=== PATIENT | female | born 1950 | race Caucasian/White ===

== ENCOUNTER → 2017-11-24 09:18 | Outpatient (CLI) | payer MEDICARE, OTHER, SELFPAY ==
[2017-11-24 09:49] LABS: Absolute Lymphocyte Count 2.37 X10^3/ul (0.83-4.51); Absolute Neutrophil Count 4.2 X10^3/uL (2.0-7.7); Basophil# 0.01 X10^3/uL; Basophil% 0.1 % (0-1); Eosinophil# 0.12 X10^3/uL; Eosinophils% 1.7 % (0-5); Hematocrit 42.7 % (37-47); Lymphocyte # 2.37 X10^3/ul (4.0); Lymphocyte % 33.4 % (19-41); Mean Corp Hgb Conc 32.8 g/gl (32-36); Mean Corpuscular Hgb 28.5 pg (27.0-32.0); Mean Platelet Vol. 10.8 fl (6.2-12.0); Monocyte# 0.41 X10^3/uL; Monocyte% 5.8 % (0-10); Neutrophil # 4.15 X10^3/uL (2.7-7.7); Neutrophil % 58.4 % (47-70); Platelet Count 253 K/mm3 (150-450); RBC Distribution Width CV 13.2 % (11.6-14.6); RBC Distribution Width SD 40.9 fl (35.1-43.9); Red Blood Count 4.91 M/mm3 (4.2-5.4); White Blood Count 7.1 K/mm3 (4.4-11.0)
[2017-11-24 09:50] LABS: POSITIVE COUNT NO; POSITIVE DIFFERENTIAL NO; POSITIVE MORPHOLOGY NO
[2017-11-24 10:02] LABS: Hemoglobin A1c 7.5 % (4.2-6.3)
[2017-11-24 10:16] LABS: T3 Total - Triiodothyronine 1.01 ng/mL (0.6-1.81); Vitamin D,25 Hydroxy 27.6 ng/mL (29.95-100.01)
[2017-11-24 10:19] LABS: AST(SGOT) 13 U/L (15-37); Alanine Aminotransfer ALT/SGPT 19 U/L (13-56); Albumin, Serum 3.7 g/dL (3.2-5.0); Alkaline Phosphatase 82 U/L (45-117); Anion Gap 8 (5-15); BUN 12 mg/dL (7-18); BUN/Creat Ratio 13.5 RATIO (10-20); Calcium,Total 8.9 mg/dL (8.5-10.1); Chloride 102 mmol/L (98-107); Cholesterol 174 mg/dL (200); Creatinine, Serum 0.89 mg/dL (0.55-1.02); EST Glomerular Filtration Rate 67 mL/min (>60); Est Glom Filt Rate - Afr Amer 81 mL/min (>60); Globulin 3.6 g/dL (2.2-4.2); Glucose 180 mg/dL (74-106); High Density Lipoprotein 73 mg/dL; Potassium 3.9 mmol/L (3.5-5.1); Protein, Total 7.3 g/dL (6.4-8.2); Sodium Level 137 mmol/L (136-145); T4 Free Direct 1.65 ng/dL (0.76-1.46); Thyroid Stim Hormone (TSH) 0.57 uIU/mL (0.358-3.74); Triglycerides 93 mg/dL; Very Low Density Lipoprotein 19 mg/dL (5-40)
== END ==
PROVIDERS: Family Provider Family Medicine; PCP Family Medicine; Referring Provider Family Medicine; Visit Provider Family Medicine
DX: E11.9 Type 2 diabetes mellitus without complications (principal); I10 Essential (primary) hypertension; E78.5 Hyperlipidemia, unspecified; E03.9 Hypothyroidism, unspecified; E55.9 Vitamin D deficiency, unspecified
CPT/HCPCS: 36415; 80053; 80061; 82306; 83036; 84439; 84443; 84480; 85025

== ENCOUNTER → 2018-07-25 | Outpatient (CLI) | payer MEDICARE, OTHER, SELFPAY ==
[2018-07-25 17:26] LABS: Absolute Lymphocyte Count 2.37 X10^3/ul (0.83-4.51); Absolute Neutrophil Count 5.8 X10^3/uL (2.0-7.7); Basophil# 0.02 X10^3/uL; Basophil% 0.2 % (0-1); Eosinophil# 0.11 X10^3/uL; Eosinophils% 1.2 % (0-5); Hemoglobin 14.5 g/dl (12.0-15.0); Lymphocyte # 2.37 X10^3/ul (4.0); Lymphocyte % 26.7 % (19-41); Mean Corp Hgb Conc 32.2 g/gl (32-36); Mean Corpuscular Hgb 27.8 pg (27.0-32.0); Mean Corpuscular Volume 86.2 fL (81-99); Mean Platelet Vol. 11.3 fl (6.2-12.0); Monocyte# 0.61 X10^3/uL; Monocyte% 6.9 % (0-10); Neutrophil # 5.77 X10^3/uL (2.7-7.7); Neutrophil % 64.9 % (47-70); Platelet Count 273 K/mm3 (150-450); RBC Distribution Width CV 14.1 % (11.6-14.6); RBC Distribution Width SD 44.4 fl (35.1-43.9); Red Blood Count 5.22 M/mm3 (4.2-5.4); White Blood Count 8.9 K/mm3 (4.4-11.0)
[2018-07-25 17:35] LABS: POSITIVE COUNT NO; POSITIVE DIFFERENTIAL NO; POSITIVE MORPHOLOGY NO
[2018-07-25 18:16] LABS: AST(SGOT) 15 U/L (15-37); Alanine Aminotransfer ALT/SGPT 25 U/L (13-56); Albumin, Serum 3.8 g/dL (3.2-5.0); Alkaline Phosphatase 84 U/L (45-117); Anion Gap 10 (5-15); BUN 10 mg/dL (7-18); BUN/Creat Ratio 14.2 RATIO (10-20); Calcium,Total 9.4 mg/dL (8.5-10.1); Chloride 105 mmol/L (98-107); EST Glomerular Filtration Rate 87 mL/min (>60); Est Glom Filt Rate - Afr Amer 106 mL/min (>60); Free T3 2.1 pg/mL (2.18-3.98); Globulin 3.9 g/dL (2.2-4.2); Glucose 122 mg/dL (74-106); Potassium 4.6 mmol/L (3.5-5.1); Protein, Total 7.7 g/dL (6.4-8.2); Sodium Level 141 mmol/L (136-145); T4 Free Direct 1.45 ng/dL (0.76-1.46)
== END | disposition home or self-care (01) ==
LOC: BFHLAB 15:41
PROVIDERS: Family Provider Family Medicine; PCP Family Medicine; Visit Provider Family Medicine
DX: R19.7 Diarrhea, unspecified (principal); E03.9 Hypothyroidism, unspecified
CPT/HCPCS: 36415; 80053; 84439; 84443; 84481; 85025

== ENCOUNTER 2018-08-26 05:19 | Day surgery (SDC) | payer MEDICARE, OTHER, SELFPAY ==
[2018-08-23 14:22] VITALS: BMI 33.5
[2018-08-26] VITALS (10 sets, daily range): BP systolic 93–147; BP diastolic 50–117; PULSE 75–95; RESP 14–16; TEMP 36.2–36.9; O2SAT 92–100; BMI 34.5
--- NOTE | 2018-08-26 05:46 | HP.PCM_ITS ---
Problem List (1) Screening for intestinal cancer Status: Acute History and Physical Date of Admission: 08/26/18 MR#:[id number]:[id number] Name: YANNA CASIANO Rep #: [id number] : 1950 Provider: Jose carrasquillo MD Age/Sex: 67/F Location: [facility] Status: Signed Intake Vital Signs 08/23/18 Height 5 ft 9 in 08/23/18 Weight: 227 lb 6 oz 08/23/18 Body Mass Index (BMI) 33.5 08/23/18 Blood Pressure 117/79 08/23/18 Blood Pressure Location Rt brachial 08/23/18 Respiratory Rate 20 H 08/23/18 Pulse Rate 99 08/23/18 Pulse Ox 96 Intake Visit Reasons: C-Scope Consult Chief Complaint: changes in bowel movements 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 Is patient in pain?: No Allergies Penicillins Allergy (Severe, Verified 08/23/18 14:23) throat swelling acetaminophen [From Vicodin] Adverse Reaction (Mild, Verified 08/23/18 14:23) mental status change hydrocodone [From Vicodin] Adverse Reaction (Mild, Verified 08/23/18 14:23) mental status change Medications calcium acetate 667 mg capsule 667 mg PO TID 08/23/18 [History Confirmed 08/23/18] cholecalciferol (vitamin D3) 2,000 unit capsule 2,000 unit PO DAILY 08/23/18 [History Confirmed 08/23/18] latanoprost 0.005 % eye drops, emulsion 1 drp OPHTHALMIC QPM 08/23/18 [History Confirmed 08/23/18] levothyroxine 125 mcg capsule 125 mcg PO DAILY 08/23/18 [History] lisinopril 10 mg tablet 10 mg PO DAILY 08/23/18 [History Confirmed 08/23/18] simvastatin 20 mg tablet 20 mg PO QHS 08/23/18 [History Confirmed 08/23/18] Is last menstrual period known: No Post menopausal: Yes Patient : No PFSH Medical History (Updated 08/23/18 @ 14:23 by Jose Drake MD) Screening for intestinal cancer (Acute) Carpal tunnel syndrome (Acute) Diabetes (Acute) History of hysterectomy (Acute) Hypothyroidism (Acute) HTN (hypertension) (Chronic) Surgical History (Updated 08/23/18 @ 14:21 by Verona Shaffer) History of cholecystectomy (Acute) History of colonoscopy (Acute ~2003) History of tonsillectomy (Acute) Family History (Updated 08/23/18 @ 14:22 by Verona Shaffer) Mother Alzheimer disease CVA (cerebral vascular accident) HPI HPI HPI: YANNA CASIANO, is a 67 F who presents to the office today for HPI HPI Surgical H&P: Yes HPI: YANNA CASIANO, is a 67 F who presents to the office today for surgical consultation regarding the need for screening colonoscopy and the potential for a slight change of bowel habit. The patient is a diet-controlled diabetic. She has had an approximately 15 pound intentional weight loss. She started exercising and trying to better control her diabetes. She has no personal history of colon polyps and there is no family history of colon cancer. October 15, 2003 Dr. Prieto Mercer performed a colonoscopy. Few scattered diverticula was seen. The ileocecal valve is slightly prominent. Some hemorrhoids were noted. No other acute findings. She has not noticed any bright red blood per rectum or melena. Stool caliber however is decreased. She will intermittently have some diarrhea that clears her system. She denies any abdominal pain. She otherwise feels well. Patient is referred by her primary care physician Dr. Vanessa Craig for surgical consultation regarding screening colonoscopy change of bowel habits with possible decreased caliber stool and intermittent diarrhea. A written compromise surgical consult recommendations will return to Dr. Craig. ROS General General: Yes weight change; no appetite, fatigue, colon cancer, breast cancer or weakness HEENT HEENT: No difficulty swallowing, eye injury, eye surgery, swollen glands or hoarseness Endo Endocrine: Yes thyroid disease and diabetes mellitus; no thyroid cancer, Hair loss, heat intolerance or cold intolerance Cardio Cardiovascular: Yes high blood pressure; no murmur, pacemaker, heart disease, atrial fibrillation, heart attack, heart stent, palpitations, shortness of breat with exertion or chest pain Psych Psychiatric: No depression, anxiety or hearing voices Resp Respiratory: No shortness of breath, No sleep apnea, No cough, No COPD, No asthma, No emphysema, No wheezing Gastro Gastrointestinal: No abdominal pain, No nausea or vomiting, No diarrhea, No constipation, No blood in stool, No acid reflux, No hemorrhoids, No ulcers, No gallbladder problem, No black,tarry stools [place] Hematologic: No blood thinners, No blood disorders, No bleeding, No anemia, No blood clots Neuro Neurologic: No weakness Exam Const General: cooperative, comfortable, no acute distress Nutritional Appearance: obese Orientation: alert, awake HENMT Head: normal to inspection Chest Chest palpation & inspection: normal inspection of the chest Resp Effort & Inspection: normal respiratory effort Auscultation: clear to auscultation bilaterally Cardio Rate: regular rate Rhythm: regular rhythm Heart Sounds: no murmurs GI Palpation: soft, no hepatosplenomegaly Auscultation: normal bowel sounds Musc Cervical Spine: normal cervical lordosis Neuro Cognition: normal cognition Extrem General: no calf tenderness bilaterally Psych Affect: normal affect Assessment & Plan Problems 1. Screening for intestinal cancer Z12.10 Plan 67-year-old female is clearly due for screening colonoscopy. Difficult to determine whether stool caliber change or intermittent diarrhea is of clinical significance. I am recommending to her a colonoscopy with possible biopsy or polypectomy as indicated. She is aware of the technique, benefit, risks, alternatives. She has had an opportunity to ask and have questions answered. We will schedule proceed at her discretion. We should be open to proceed under IV sedation. I very much appreciate the kind opportunity of assisting with her surgical care. She reminds me that I have previously assisted her with a breast biopsy. CC: Dr. Vanessa Drake M.D., F.A.C.S. Coding Level of Care Code 14248 Diagnoses Screening for intestinal cancer Z12.08/23/18 1426 <Electronically signed by Jose berman MD> Date _ Jose Drake MD Cosigner Signature: Date (if applicable) CC: Vanessa Craig DO ~ I have re-examined the patient. There are no clinical changes since date of exam.
--- NOTE | 2018-08-26 06:30 | COLBX_PTH ---
PATIENT: YANNA CASIANO LOC: EN U#:[id number] AGE/SX: 67/F ROOM: RE08/26/[address]: Dr. Jose Drake MD : 1950 BED: DIS: 08/26/2018 SPEC #: [id number] RECD: 08/26/18 10:56 STATUS: REJI DELGADO #: [id number] MUNIRA: 08/26/18 06:[address]: Jose Drake DEPT: SURGICAL PATHOLOGY RECD BY: Aidan Frazier ENTERED: 08/26/18 15:04 SP TYPE: COLON BX OTHR DR: Dr. Vanessa Craig DO Tissues: Left colon Procedures: Surgery Specimen Level IV HEADER OPERATION: Colonoscopy (MOD) PRE-OP DIAGNOSIS: Screening TISSUE SUBMITTED: Random left colonic biopsy MICROSCOPIC DIAGNOSIS Left colon, random biopsy: No pathologic diagnosis. AM:gen 08/29/18 COMMENT Focal mucosal hemorrhage is seen. The significance of this is unclear. Clinical correlation is suggested. MICROSCOPIC DESCRIPTION Slides are reviewed. GROSS DESCRIPTION Received in fixative is one container labeled with the patient's name and designated random left colon biopsy. The specimen consists of multiple irregular fragments of light sterling soft tissue that in aggregate measure 1 x 0.5 x 0.1 cm. The specimen is totally submitted in one cassette. / AM:gen 08/26/18 TC:5 CPT: 94243
--- NOTE | 2018-08-26 07:01 | OP.ENDO_ITS ---
08/26/2018 Vanessa Craig [address] [facility] [place] [address] [place] [address] Re : Colonoscopy procedure for Dora Guzmán Dear Dr. Craig This procedure was performed on Sunday, August 26, 2018. My impressions and recommendations are as follows: Impressions : - Mild anal stricture, non-thrombosed external hemorrhoids, non-thrombosed internal hemorrhoids and internal hemorrhoids that prolapse with straining, but spontaneously regress to the resting position (Grade II) found on digital rectal exam. - Diverticulosis in the sigmoid colon. Biopsied. - The examination was otherwise normal. Recommendations : - Discharge patient to home. - Resume previous diet. - Continue present medications. - Repeat colonoscopy in 10 years for screening purposes. - Telephone my office for pathology results in 1 week. Suspect diverticular disease as source of occasional bowel habit differences My findings are described in the full procedure note, which is enclosed. If I can be of further assistance, please feel free to contact me at Doctor phone number(s): Work: . Sincerely, Jose Drake MD 08/26/2018 7:00:50 AM This report has been signed electronically.
== END 2018-08-26 07:59 | disposition home or self-care (01) ==
LOC: EN 05:20 → AC 05:22
PROVIDERS: Family Provider Family Medicine; PCP Family Medicine; Referring Provider Family Medicine; Visit Provider Surgery
PROC: 0DJD8ZZ Inspection of Lower Intestinal Tract, Via Natural or Artificial Opening Endoscopic (ICD-10-PCS; CPT 45378; principal; 2018-08-26 06:25)
DX: Z12.11 Encounter for screening for malignant neoplasm of colon (principal); K62.4 Stenosis of anus and rectum; K64.1 Second degree hemorrhoids; K64.4 Residual hemorrhoidal skin tags; K57.30 Diverticulosis of large intestine without perforation or abscess without bleeding; E11.9 Type 2 diabetes mellitus without complications; E03.9 Hypothyroidism, unspecified; I10 Essential (primary) hypertension; Z78.0 Asymptomatic menopausal state; Z90.49 Acquired absence of other specified parts of digestive tract; Z79.899 Other long term (current) drug therapy
CPT/HCPCS: 45380; 88305; 99152; 99153; J7120

== ENCOUNTER → 2019-08-22 07:09 | Outpatient (CLI) | payer MEDICARE, OTHER, SELFPAY ==
[2018-08-26 05:39] VITALS: BMI 34.5
--- NOTE | 2019-08-22 07:14 | CT_ITS ---
STUDY: CT BRAIN WITH AND WITHOUT CONTRAST REASON FOR EXAM: Female, 68 years old. SECTOR ARCUATE DEFECTS BILAT RADIATION DOSAGE (If Supplied By Facility): CTDIvol = ( 44.99 ) mGy, DLP = ( 1580.97 ) mGycm TECHNIQUE: Transaxial CT imaging of the brain was performed pre and post contrast administration. The examination was performed with intravenous administration of IV 100mL Isovue-300. Individualized dose optimization techniques were used for this CT. COMPARISON: None. FINDINGS: Normal soft tissue structures. Normal calvarium. Normal size ventricles and extra-axial spaces for the patient''s age. Normal white matter tracts of the cerebral hemispheres. Normal basal ganglia and thalami. Normal brainstem. Normal cerebellum. There is prominence of the cisterna magna. This is a normal variant. There is no intracranial hemorrhage. There are no findings of an acute ischemic infarction. Normal visualized paranasal sinuses. CT/Brain/Head W/WO Contrast IMPRESSION: Normal unenhanced and enhanced CT scan of the brain. Electronically Signed: Kapil Dickens, at 10:48 EDT , Service support ,
[2019-08-22 07:31] LABS: CREATININE FINGERSTICK 0.7 mg/dL (0.55-1.02)
== END ==
PROVIDERS: PCP Family Medicine; Referring Provider Ophthalmology; Visit Provider Ophthalmology
DX: H53.433 Sector or arcuate defects, bilateral (principal)
CPT/HCPCS: 70470; Q9967

== ENCOUNTER → 2019-08-24 10:19 | Outpatient (CLI) | payer MEDICARE, OTHER, SELFPAY ==
[2018-08-26 05:39] VITALS: BMI 34.5
[2019-08-24 12:39] LABS: Absolute Lymphocyte Count 1.67 X10^3/uL (0.83-4.51); Absolute Neutrophil Count 6.2 X10^3/uL (2.0-7.7); Basophil# 0.03 X10^3/uL; Basophil% 0.4 % (0-1); Eosinophil# 0.04 X10^3/uL; Eosinophils% 0.5 % (0-5); Hematocrit 44.6 % (37-47); Hemoglobin 14.4 g/dL (12.0-15.0); Lymphocyte # 1.67 X10^3/ul (4.0); Lymphocyte % 19.5 % (19-41); Mean Corp Hgb Conc 32.3 g/dL (32-36); Mean Corpuscular Hgb 28.3 pg (27.0-32.0); Mean Corpuscular Volume 87.8 fL (81-99); Mean Platelet Vol. 11.3 fl (6.2-12.0); Monocyte# 0.64 X10^3/uL; Monocyte% 7.5 % (0-10); NRBC Flagged by Analyzer 0 % (0-5); Neutrophil # 6.16 X10^3/uL (2.7-7.7); Neutrophil % 71.7 % (47-70); Platelet Count 304 K/mm3 (150-450); RBC Distribution Width CV 12.9 % (11.6-14.6); RBC Distribution Width SD 41.7 fl (35.1-43.9); Red Blood Count 5.08 M/mm3 (4.2-5.4); White Blood Count 8.6 K/mm3 (4.4-11.0)
[2019-08-24 13:46] LABS: ALB/GLOB Ratio 1.1 RATIO (0.9-2.4); AST(SGOT) 16 U/L (15-37); Alanine Aminotransfer ALT/SGPT 25 U/L (13-56); Albumin, Serum 4.1 g/dL (3.2-5.0); Alkaline Phosphatase 88 U/L (45-117); Anion Gap 8 (5-15); BUN 14 mg/dL (7-18); BUN/Creat Ratio 16.2 RATIO (10-20); Calcium,Total 9.5 mg/dL (8.5-10.1); Chloride 103 mmol/L (98-107); Cholesterol 194 mg/dL (200); Creatinine, Serum 0.86 mg/dL (0.55-1.02); EST Glomerular Filtration Rate 69 mL/min (>60); Est Glom Filt Rate - Afr Amer 84 mL/min (>60); Free T3 2.4 pg/mL (2.18-3.98); Globulin 3.7 g/dL (2.2-4.2); Glucose 173 mg/dL (74-106); High Density Lipoprotein 77 mg/dL; Potassium 4.3 mmol/L (3.5-5.1); Protein, Total 7.8 g/dL (6.4-8.2); Sodium Level 138 mmol/L (136-145); T4 Free Direct 1.54 ng/dL (0.76-1.46); Thyroid Stim Hormone (TSH) 1.03 uIU/mL (0.358-3.74); Triglycerides 78 mg/dL; Very Low Density Lipoprotein 16 mg/dL (5-40)
== END ==
PROVIDERS: PCP Family Medicine; Visit Provider Family Medicine
DX: E11.9 Type 2 diabetes mellitus without complications (principal); E03.9 Hypothyroidism, unspecified; E78.5 Hyperlipidemia, unspecified; I10 Essential (primary) hypertension; Z51.81 Encounter for therapeutic drug level monitoring
CPT/HCPCS: 36415; 80053; 80061; 84439; 84443; 84481; 85025

== ENCOUNTER → 2019-09-13 12:16 | Outpatient (CLI) | payer MEDICARE, OTHER, SELFPAY ==
[2018-08-26 05:39] VITALS: BMI 34.5
--- NOTE | 2019-09-13 12:18 | BI_ITS ---
MAMMOGRAPHY - BILATERAL SCREENING 3-D TOMOSYNTHESIS REASON FOR EXAM: Female, 68 years old. Routine screening PERTINENT HISTORY: BILAT SCREENING - FAM HX OF PATERNAL GRANDMOTHER @ AGE 68 - RT STEREO BX 2005 - RT U/S DONE 2017 = LIPOMA. TECHNIQUE: 2-D mammograms and 3-D Tomosynthesis of the breast (s) were performed. CAD was performed. COMPARISON: 06/26/2016 FINDINGS: The breast composition is composed of scattered fibroglandular density. Scattered benign calcifications are seen. No dense spiculated masses or suspicious microcalcifications are identified. No architectural distortion is identified. There is no skin thickening or retraction. There has been no significant change since the prior study. BI/SCREEN MAMM (CAD) W/VIANCA BILAT IMPRESSION: No mammographic signs of malignancy. Routine yearly mammograms recommended. ASSESSMENT CATEGORY: BIRADS Category 1: Negative. A letter regarding these results will be sent to the patient by the facility within 30 days. FOLLOW UP RECOMMENDATION: Yearly follow up mammogram recommended. (A) Approximately 10% of breast cancers are not detected by mammography. A normal mammogram should not delay biopsy of a clinically suspicious abnormality. Electronically Signed: Fernie Henley MD at 13:27 EDT , Service support ,
== END ==
PROVIDERS: PCP Family Medicine; Referring Provider Family Medicine; Visit Provider Family Medicine
DX: Z12.31 Encounter for screening mammogram for malignant neoplasm of breast (principal)
CPT/HCPCS: 77063; 77067

== ENCOUNTER → 2020-05-31 09:41 | Outpatient (CLI) | payer MEDICARE, OTHER, SELFPAY ==
[2018-08-26 05:39] VITALS: BMI 34.5
[2020-05-31 12:38] LABS: Absolute Lymphocyte Count 2.12 X10^3/uL (0.83-4.51); Absolute Neutrophil Count 3.7 X10^3/uL (2.0-7.7); Basophil# 0.02 X10^3/uL; Basophil% 0.3 % (0-1); Eosinophil# 0.11 X10^3/uL; Eosinophils% 1.7 % (0-5); Hematocrit 41.7 % (37-47); Hemoglobin 13.5 g/dL (12.0-15.0); Lymphocyte # 2.12 X10^3/ul (4.0); Lymphocyte % 33.3 % (19-41); Mean Corp Hgb Conc 32.4 g/dL (32-36); Mean Corpuscular Hgb 29.3 pg (27.0-32.0); Mean Corpuscular Volume 90.7 fL (81-99); Mean Platelet Vol. 11.7 fl (6.2-12.0); Monocyte# 0.42 X10^3/uL; Monocyte% 6.6 % (0-10); NRBC Flagged by Analyzer 0 % (0-5); Neutrophil # 3.67 X10^3/uL (2.7-7.7); Neutrophil % 57.8 % (47-70); Platelet Count 244 K/mm3 (150-450); RBC Distribution Width CV 13.4 % (11.6-14.6); RBC Distribution Width SD 43.7 fl (35.1-43.9); White Blood Count 6.4 K/mm3 (4.4-11.0)
[2020-05-31 13:12] LABS: ALB/GLOB Ratio 1.1 RATIO (0.9-2.4); AST(SGOT) 9 U/L (15-37); Alanine Aminotransfer ALT/SGPT 19 U/L (13-56); Albumin, Serum 3.6 g/dL (3.2-5.0); Alkaline Phosphatase 70 U/L (45-117); Anion Gap 4 (5-15); BUN 17 mg/dL (7-18); BUN/Creat Ratio 24.3 RATIO (10-20); Calcium,Total 9.3 mg/dL (8.5-10.1); Chloride 107 mmol/L (98-107); Cholesterol 219 mg/dL (200); EST Glomerular Filtration Rate 87 mL/min (>60); Est Glom Filt Rate - Afr Amer 106 mL/min (>60); Free T3 1.9 pg/mL (2.18-3.98); Globulin 3.4 g/dL (2.2-4.2); Glucose 158 mg/dL (74-106); High Density Lipoprotein 89 mg/dL; Potassium 4.1 mmol/L (3.5-5.1); Sodium Level 140 mmol/L (136-145); T4 Free Direct 1.21 ng/dL (0.76-1.46); Thyroid Stim Hormone (TSH) 0.95 uIU/mL (0.358-3.74); Triglycerides 52 mg/dL; Very Low Density Lipoprotein 10 mg/dL (5-40)
== END ==
PROVIDERS: PCP Family Medicine; Referring Provider Family Medicine; Visit Provider Family Medicine
DX: E03.9 Hypothyroidism, unspecified (principal); E78.5 Hyperlipidemia, unspecified; E11.9 Type 2 diabetes mellitus without complications; Z51.81 Encounter for therapeutic drug level monitoring
CPT/HCPCS: 36415; 80053; 80061; 84439; 84443; 84481; 85025

== ENCOUNTER → 2020-08-06 07:34 | Outpatient (CLI) | payer MEDICARE, OTHER, SELFPAY ==
[2018-08-26 05:39] VITALS: BMI 34.5
[2020-08-06 10:44] LABS: Free T3 2.7 pg/mL (2.18-3.98); T4 Free Direct 1.32 ng/dL (0.76-1.46); Thyroid Stim Hormone (TSH) 0.08 uIU/mL (0.358-3.74)
== END ==
PROVIDERS: PCP Family Medicine; Referring Provider Family Medicine; Visit Provider Family Medicine
DX: E03.9 Hypothyroidism, unspecified (principal)
CPT/HCPCS: 36415; 84439; 84443; 84481

== ENCOUNTER → 2020-10-16 07:35 | Outpatient (CLI) | payer MEDICARE, OTHER, SELFPAY ==
[2018-08-26 05:39] VITALS: BMI 34.5
--- NOTE | 2020-10-16 07:45 | BI_ITS ---
MAMMOGRAPHY - BILATERAL SCREENING REASON FOR EXAM: Female, 69 years old. Routine annual screening examination. PERTINENT HISTORY: Grandmother with breast cancer. Remote right stereotactic breast biopsy. TECHNIQUE: Digital bilateral breast vianca (3D mammographic acquisition) in the CC and MLO projections. 2-D mediolateral oblique (MLO) and craniocaudad (CC) views of both breasts were obtained. CAD: Full Field Digital Mammography with Computer Added Detection was performed. COMPARISON: Comparison is made with prior examination dated 09/13/2019 and 06/26/2016. FINDINGS: Breast Composition: There are scattered areas of fibroglandular density. There are no dominant masses or suspicious calcifications. Stable small benign-appearing bilateral axillary lymph nodes. A tissue clip marker is once again seen in the central slightly upper aspect of the left breast. No other significant abnormalities are identified. There has been no significant change since the prior study. BI/SCRN MAMM (CAD)W/VIANCA BILAT IMPRESSION: Stable bilateral screening mammogram. Yearly follow-up mammogram recommended. (A) ASSESSMENT CATEGORY: BIRADS Category 2: Benign. A letter regarding these results will be sent to the patient by the facility within 30 days. Approximately 10% of breast cancers are not detected by mammography. A normal mammogram should not delay biopsy of a clinically suspicious abnormality. [id number] Electronically Signed: Kapil Dickens MD at 8:52 EDT , Service support ,
== END ==
PROVIDERS: PCP Family Medicine; Referring Provider Family Medicine; Visit Provider Family Medicine
DX: Z12.31 Encounter for screening mammogram for malignant neoplasm of breast (principal)
CPT/HCPCS: 77063; 77067

== ENCOUNTER → 2021-10-30 | Outpatient (CLI) | payer MEDICARE, OTHER, SELFPAY ==
[2021-10-30 10:04] LABS: Absolute Lymphocyte Count 1.88 X10^3/uL (0.83-4.51); Absolute Neutrophil Count 4.1 X10^3/uL (2.0-7.7); Basophil# 0.03 X10^3/uL; Basophil% 0.5 % (0-1); Eosinophils% 1.5 % (0-5); Hematocrit 40.6 % (37-47); Hemoglobin 13.4 g/dL (12.0-15.0); Lymphocyte # 1.88 X10^3/ul (0.83-4.51); Lymphocyte % 28.4 % (19-41); Mean Corpuscular Hgb 28.8 pg (27.0-32.0); Mean Corpuscular Volume 87.3 fL (81-99); Monocyte# 0.49 X10^3/uL; Monocyte% 7.4 % (0-10); NRBC Flagged by Analyzer 0 % (0-5); Neutrophil % 61.9 % (47-70); Platelet Count 238 K/mm3 (150-450); RBC Distribution Width SD 41.6 fl (35.1-43.9); Red Blood Count 4.65 M/mm3 (4.2-5.4); White Blood Count 6.6 K/mm3 (4.4-11.0)
[2021-10-30 10:37] LABS: AST(SGOT) 11 U/L (15-37); Alanine Aminotransfer ALT/SGPT 18 U/L (13-56); Albumin, Serum 3.5 g/dL (3.2-5.0); Alkaline Phosphatase 69 U/L (45-117); Anion Gap 8 (5-15); BUN 20 mg/dL (7-18); BUN/Creat Ratio 29.1 RATIO (10-20); Calcium,Total 9.2 mg/dL (8.5-10.1); Chloride 105 mmol/L (98-107); Creatinine, Serum 0.69 mg/dL (0.55-1.02); EST Glomerular Filtration Rate 89 mL/min (>60); Est Glom Filt Rate - Afr Amer 108 mL/min (>60); Free T3 2.4 pg/mL (2.18-3.98); Globulin 3.4 g/dL (2.2-4.2); Glucose 156 mg/dL (74-106); Potassium 4.4 mmol/L (3.5-5.1); Protein, Total 6.9 g/dL (6.4-8.2); Sodium Level 139 mmol/L (136-145); T4 Free Direct 1.87 ng/dL (0.76-1.46); Thyroid Stim Hormone (TSH) 0.14 uIU/mL (0.358-3.74)
== END | disposition home or self-care (01) ==
LOC: MTLAB 08:12
PROVIDERS: PCP Family Medicine; Referring Provider Family Medicine; Visit Provider Family Medicine
DX: E03.9 Hypothyroidism, unspecified (principal); Z51.81 Encounter for therapeutic drug level monitoring
CPT/HCPCS: 36415; 80053; 84439; 84443; 84481; 85025

== ENCOUNTER → 2021-10-31 | Outpatient (CLI) | payer MEDICARE, OTHER, SELFPAY ==
--- NOTE | 2021-10-31 07:21 | BI_ITS ---
MAMMOGRAPHY - BILATERAL SCREENING REASON FOR EXAM: Female, 70 years old. Routine annual screening examination. PERTINENT HISTORY: Grandmother with breast cancer. Remote right stereotactic breast biopsy. TECHNIQUE: Digital bilateral breast vianca (3D mammographic acquisition) in the CC and MLO projections. 2-D mediolateral oblique (MLO) and craniocaudad (CC) views of both breasts were obtained. CAD: Full Field Digital Mammography with Computer Added Detection was performed. COMPARISON: Comparison is made with prior study 10/16/2020 and 09/13/2019. FINDINGS: Breast Composition: There are scattered areas of fibroglandular density. There are no dominant masses or suspicious calcifications. Stable small benign appearing bilateral axillary lymph nodes. A tissue clip marker is once again seen in the central slightly upper aspect of the left breast. Stable scattered calcifications in both breasts. No other significant abnormalities are identified. There has been no significant change since the prior study. BI/SCRN MAMM (CAD)W/VIANCA BILAT IMPRESSION: Stable bilateral screening mammogram. Yearly follow-up mammogram recommended. (A) ASSESSMENT CATEGORY: BIRADS Category 2: Benign. A letter regarding these results will be sent to the patient by the facility within 30 days. Approximately 10% of breast cancers are not detected by mammography. A normal mammogram should not delay biopsy of a clinically suspicious abnormality. [id number] Electronically Signed: Kapil Dickens MD at 8:43 EDT ,
== END | disposition home or self-care (01) ==
LOC: OPBI 07:20
PROVIDERS: PCP Family Medicine; Visit Provider Family Medicine
DX: Z12.31 Encounter for screening mammogram for malignant neoplasm of breast (principal)
CPT/HCPCS: 77063; 77067

== ENCOUNTER → 2022-02-26 | Outpatient (CLI) | payer MEDICARE, OTHER, SELFPAY ==
[2022-02-26 10:36] LABS: Free T3 2.1 pg/mL (2.18-3.98); T4 Free Direct 1.37 ng/dL (0.76-1.46); Thyroid Stim Hormone (TSH) 0.32 uIU/mL (0.358-3.74)
== END | disposition home or self-care (01) ==
LOC: BFHLAB 09:32
PROVIDERS: PCP Family Medicine; Visit Provider Family Medicine
DX: E03.9 Hypothyroidism, unspecified (principal)
CPT/HCPCS: 36415; 84439; 84443; 84481

== ENCOUNTER → 2022-09-03 | Outpatient (CLI) | payer MEDICARE, OTHER, SELFPAY ==
[2022-09-03 13:23] LABS: Free T3 1.8 pg/mL (2.18-3.98); T4 Free Direct 1.16 ng/dL (0.76-1.46); Thyroid Stim Hormone (TSH) 1.28 uIU/mL (0.358-3.74)
== END | disposition home or self-care (01) ==
LOC: BFHLAB 09:58
PROVIDERS: PCP Family Medicine; Referring Provider Family Medicine; Visit Provider Family Medicine
DX: E03.9 Hypothyroidism, unspecified (principal)
CPT/HCPCS: 36415; 84439; 84443; 84481

== ENCOUNTER → 2022-11-20 | Outpatient (CLI) | payer MEDICARE, OTHER, SELFPAY ==
--- NOTE | 2022-11-20 07:35 | BI_ITS ---
MAMMOGRAPHY - BILATERAL SCREENING REASON FOR EXAM: Female, 71 years old. Routine annual screening examination. PERTINENT HISTORY: Grandmother with breast cancer. Prior right stereotactic breast biopsy. TECHNIQUE: Digital bilateral breast vianca (3D mammographic acquisition) in the CC and MLO projections. 2-D mediolateral oblique (MLO) and craniocaudad (CC) views of both breasts were obtained. CAD: Full Field Digital Mammography with Computer Added Detection was performed. COMPARISON: Comparison is made with prior study date October 31, 2021 and October 16, 2020. FINDINGS: Breast Composition: There are scattered areas of fibroglandular density. There are no dominant masses or suspicious calcifications. A tissue clip marker is once again seen in the central slightly upper aspect of the right breast. Stable bilateral axillary lymph nodes. No other significant abnormalities are identified. There has been no significant change since the prior study. BI/SCRN MAMM (CAD)W/VIANCA BILAT IMPRESSION: Stable bilateral screening mammogram. Yearly follow-up mammogram recommended. (A) ASSESSMENT CATEGORY: BIRADS Category 2: Benign. A letter regarding these results will be sent to the patient by the facility within 30 days. Approximately 10% of breast cancers are not detected by mammography. A normal mammogram should not delay biopsy of a clinically suspicious abnormality. [id number] Electronically Signed: Kapil Dickens MD at 9:02 EDT ,
== END | disposition home or self-care (01) ==
LOC: OPBI 07:34
PROVIDERS: PCP Family Medicine; Visit Provider Family Medicine
DX: Z12.31 Encounter for screening mammogram for malignant neoplasm of breast (principal); Z80.3 Family history of malignant neoplasm of breast
CPT/HCPCS: 77063; 77067

== ENCOUNTER → 2022-12-08 | Outpatient (CLI) | payer MEDICARE, OTHER, SELFPAY ==
[2022-12-08 10:18] LABS: Absolute Lymphocyte Count 2.36 X10^3/uL (0.83-4.51); Absolute Neutrophil Count 3.5 X10^3/uL (2.0-7.7); Basophil# 0.04 X10^3/uL; Basophil% 0.6 % (0-1); Eosinophil# 0.13 X10^3/uL; Hematocrit 44.2 % (37-47); Lymphocyte # 2.36 X10^3/ul (0.83-4.51); Lymphocyte % 36.1 % (19-41); Mean Corp Hgb Conc 31.7 g/dL (32-36); Mean Corpuscular Hgb 28.6 pg (27.0-32.0); Mean Corpuscular Volume 90.4 fL (81-99); Mean Platelet Vol. 10.8 fl (6.2-12.0); Monocyte# 0.47 X10^3/uL; Monocyte% 7.2 % (0-10); NRBC Flagged by Analyzer 0 % (0-5); Neutrophil # 3.51 X10^3/uL (2.7-7.7); Neutrophil % 53.8 % (47-70); Platelet Count 231 K/mm3 (150-450); RBC Distribution Width CV 12.8 % (11.6-14.6); RBC Distribution Width SD 42.5 fl (35.1-43.9); Red Blood Count 4.89 M/mm3 (4.2-5.4); White Blood Count 6.5 K/mm3 (4.4-11.0)
[2022-12-08 11:27] LABS: Microalbumin,Random Urine 11.2 mg/L (NO RANGE EST.); Microalbumin:Creatinine Ratio 6.5 mg/g CRE (<30 mg/g CRE)
[2022-12-08 11:53] LABS: ALB/GLOB Ratio 1.1 RATIO (0.9-2.4); AST(SGOT) 14 U/L (15-37); Alanine Aminotransfer ALT/SGPT 21 U/L (13-56); Albumin, Serum 3.6 g/dL (3.2-5.0); Alkaline Phosphatase 65 U/L (45-117); Anion Gap 4 (5-15); BUN 17 mg/dL (7-18); BUN/Creat Ratio 25.2 RATIO (10-20); Calcium,Total 8.8 mg/dL (8.5-10.1); Chloride 109 mmol/L (98-107); Cholesterol 202 mg/dL (200); Creatinine, Serum 0.68 mg/dL (0.55-1.02); EST Glomerular Filtration Rate 91 mL/min (>60); Est Glom Filt Rate - Afr Amer 110 mL/min (>60); Free T3 1.8 pg/mL (2.18-3.98); Globulin 3.3 g/dL (2.2-4.2); Glucose 126 mg/dL (74-106); High Density Lipoprotein 88 mg/dL; Potassium 3.7 mmol/L (3.5-5.1); Protein, Total 6.9 g/dL (6.4-8.2); Sodium Level 139 mmol/L (136-145); T4 Free Direct 1.34 ng/dL (0.76-1.46); Thyroid Stim Hormone (TSH) 4.16 uIU/mL (0.358-3.74); Triglycerides 62 mg/dL; Very Low Density Lipoprotein 12 mg/dL (5-40)
== END | disposition home or self-care (01) ==
LOC: MTLAB 08:52
PROVIDERS: PCP Family Medicine; Referring Provider Family Medicine; Visit Provider Family Medicine
DX: E03.9 Hypothyroidism, unspecified (principal); E78.5 Hyperlipidemia, unspecified; Z51.81 Encounter for therapeutic drug level monitoring
CPT/HCPCS: 36415; 80053; 80061; 82043; 82570; 84439; 84443; 84481; 85025

== ENCOUNTER → 2023-07-06 | Outpatient (CLI) | payer MEDICARE, OTHER, SELFPAY ==
[2023-07-06 11:06] LABS: Free T3 1.8 pg/mL (2.18-3.98); T4 Free Direct 1.23 ng/dL (0.76-1.46)
== END | disposition home or self-care (01) ==
LOC: MTLAB 08:15
PROVIDERS: PCP Family Medicine; Referring Provider Family Medicine; Visit Provider Family Medicine
DX: E03.9 Hypothyroidism, unspecified (principal); E11.9 Type 2 diabetes mellitus without complications
CPT/HCPCS: 36415; 84439; 84443; 84481

== ENCOUNTER → 2024-01-11 | Outpatient (CLI) | payer MEDICARE, OTHER, SELFPAY ==
[2024-01-11 11:15] LABS: Microalbumin,Random Urine 56.3 mg/L (NO RANGE EST.); Microalbumin:Creatinine Ratio 19.7 mg/g CRE (<30 mg/g CRE)
[2024-01-11 12:14] LABS: Absolute Lymphocyte Count 1.94 X10^3/uL (0.83-4.51); Absolute Neutrophil Count 5.1 X10^3/uL (2.0-7.7); Basophil# 0.03 X10^3/uL; Basophil% 0.4 % (0-1); Eosinophil# 0.09 X10^3/uL; Eosinophils% 1.2 % (0-5); Hematocrit 43.2 % (37-47); Hemoglobin 14.2 g/dL (12.0-15.0); Lymphocyte # 1.94 X10^3/ul (0.83-4.51); Lymphocyte % 25.1 % (19-41); Mean Corp Hgb Conc 32.9 g/dL (32-36); Mean Corpuscular Hgb 28.7 pg (27.0-32.0); Mean Corpuscular Volume 87.4 fL (81-99); Mean Platelet Vol. 11.4 fl (6.2-12.0); Monocyte# 0.57 X10^3/uL; Monocyte% 7.4 % (0-10); NRBC Flagged by Analyzer 0 % (0-5); Neutrophil # 5.08 X10^3/uL (2.7-7.7); Neutrophil % 65.6 % (47-70); Platelet Count 232 K/mm3 (150-450); RBC Distribution Width CV 12.9 % (11.6-14.6); RBC Distribution Width SD 41.3 fl (35.1-43.9); Red Blood Count 4.94 M/mm3 (4.2-5.4); White Blood Count 7.7 K/mm3 (4.4-11.0)
[2024-01-11 12:45] LABS: ALB/GLOB Ratio 1.2 RATIO (0.9-2.4); AST(SGOT) 13 U/L (15-37); Alanine Aminotransfer ALT/SGPT 17 U/L (13-56); Albumin, Serum 3.8 g/dL (3.2-5.0); Alkaline Phosphatase 63 U/L (45-117); Anion Gap 7 (5-15); BUN 19 mg/dL (7-18); BUN/Creat Ratio 25.6 RATIO (10-20); Calcium,Total 9.5 mg/dL (8.5-10.1); Chloride 105 mmol/L (98-107); Cholesterol 194 mg/dL (200); Creatinine, Serum 0.74 mg/dL (0.55-1.02); EST Glomerular Filtration Rate 81 mL/min (>60); Est Glom Filt Rate - Afr Amer 98 mL/min (>60); Free T3 2.3 pg/mL (2.18-3.98); Globulin 3.2 g/dL (2.2-4.2); Glucose 177 mg/dL (74-106); High Density Lipoprotein 91 mg/dL; Potassium 3.8 mmol/L (3.5-5.1); Sodium Level 138 mmol/L (136-145); T4 Free Direct 1.45 ng/dL (0.76-1.46); Triglycerides 71 mg/dL; Very Low Density Lipoprotein 14 mg/dL (5-40)
[2024-01-11 12:58] LABS: Hemoglobin A1c 6.9 % (3.8-5.6)
== END | disposition home or self-care (01) ==
LOC: MTLAB 08:48
PROVIDERS: PCP Family Medicine; Referring Provider Family Medicine; Visit Provider Family Medicine
DX: E11.9 Type 2 diabetes mellitus without complications (principal); E03.9 Hypothyroidism, unspecified; E78.5 Hyperlipidemia, unspecified; I10 Essential (primary) hypertension
CPT/HCPCS: 36415; 80053; 80061; 82043; 82570; 83036; 84439; 84443; 84481; 85025

== ENCOUNTER → 2024-02-08 | Outpatient (CLI) | payer MEDICARE, OTHER, SELFPAY ==
--- NOTE | 2024-02-08 12:37 | BI_ITS ---
MAMMOGRAPHY - BILATERAL SCREENING REASON FOR EXAM: Female, 73 years old. Routine annual screening examination. PERTINENT HISTORY: Grandmother with breast cancer. History of prior right stereotactic breast biopsy. TECHNIQUE: Digital bilateral breast vianca (3D mammographic acquisition) in the CC and MLO projections. 2-D mediolateral oblique (MLO) and craniocaudad (CC) views of both breasts were obtained. CAD: Full Field Digital Mammography with Computer Added Detection was performed. COMPARISON: Comparison is made with prior study dated November 20, 2022 and October 31, 2021. FINDINGS: Breast Composition: There are scattered areas of fibroglandular density. There are no dominant masses or suspicious calcifications. A tissue clip marker is seen in the central posterior medial aspect of the right breast. Stable bilateral fat containing axillary lymph nodes. No other significant abnormalities are identified. There has been no significant change since the prior study. BI/SCRN MAMM (CAD)W/VIANCA BILAT IMPRESSION: Stable bilateral screening mammogram. Yearly follow-up mammogram recommended. (A) ASSESSMENT CATEGORY: BIRADS Category 2: Benign. A letter regarding these results will be sent to the patient by the facility within 30 days. Approximately 10% of breast cancers are not detected by mammography. A normal mammogram should not delay biopsy of a clinically suspicious abnormality. [id number] Electronically Signed: Kapil Dickens MD at 13:21 EST ,
== END | disposition home or self-care (01) ==
LOC: OPBI 12:35
PROVIDERS: PCP Family Medicine; Referring Provider Family Medicine; Visit Provider Family Medicine
DX: Z12.31 Encounter for screening mammogram for malignant neoplasm of breast (principal); Z80.3 Family history of malignant neoplasm of breast
CPT/HCPCS: 77063; 77067

== ENCOUNTER → 2025-01-22 | Outpatient (CLI) | payer MEDICARE, OTHER, SELFPAY | END | disposition home or self-care (01) | LOC: LABSPEC 10:42 | PROVIDERS: PCP Family Medicine; Visit Provider Family Medicine | DX: R82.90 Unspecified abnormal findings in urine (principal) | CPT/HCPCS: 87077; 87086; 87088; 87186 ==

== ENCOUNTER → 2025-01-29 | Outpatient (CLI) | payer MEDICARE, OTHER, SELFPAY ==
[2025-01-29 12:31] LABS: Hematocrit 41.0 % (37-47); Hemoglobin 13.2 g/dL (12.0-15.0); Immature Granulocytes Count 0.070 X10^3/uL (0.0-0.0); Mean Corp Hgb Conc 32.2 g/dL (32-36); Mean Corpuscular Volume 88.2 fL (81-99); Mean Platelet Vol. 10.5 fl (6.2-12.0); NRBC Flagged by Analyzer 0 % (0-5); Platelet Count 352 K/mm3 (150-450); RBC Distribution Width CV 13.2 % (11.6-14.6); RBC Distribution Width SD 42.6 fl (35.1-43.9); Red Blood Count 4.65 M/mm3 (4.2-5.4); White Blood Count 7.7 K/mm3 (4.4-11.0)
[2025-01-29 13:03] LABS: AST(SGOT) 15 U/L (<=31); Alanine Aminotransfer ALT/SGPT 12 U/L (<=34); Albumin, Serum 4.2 g/dL (3.4-4.8); Alkaline Phosphatase 63 U/L (35-104); Anion Gap 9 (5-15); BUN 19 mg/dL (4-19); BUN/Creat Ratio 28.9 RATIO (10-20); Calcium,Total 9.3 mg/dL (7.6-11.0); Carbon Dioxide 27.1 mmol/L (21.0-32.0); Chloride 102 mmol/L (98-108); Cholesterol 186 mg/dL (<=200); Free T3 2.3 pg/mL (2.18-3.98); Globulin 2.7 g/dL (2.2-4.2); Glucose 153 mg/dL (70-99); Low Density Lipoprotein Calc. 98 mg/dL; Potassium 4.2 mmol/L (3.3-5.1); Triglycerides 51 mg/dL; Very Low Density Lipoprotein 10 mg/dL (5-40); cholesterol:hdl ratio screen 2.38
[2025-01-29 13:04] LABS: Creatinine, Urine (random) 120.00 mg/dL (28.00-217.00); Microalbumin,Random Urine < 12.0 mg/L (<20 mg/L)
== END | disposition home or self-care (01) ==
LOC: MTLAB 10:41
PROVIDERS: PCP Family Medicine; Referring Provider Family Medicine; Visit Provider Family Medicine
DX: E03.9 Hypothyroidism, unspecified (principal); E11.9 Type 2 diabetes mellitus without complications; E78.5 Hyperlipidemia, unspecified; I10 Essential (primary) hypertension
CPT/HCPCS: 36415; 80053; 80061; 82043; 82570; 83036; 84439; 84443; 84481; 85025

== ENCOUNTER → 2025-02-09 | Outpatient (CLI) | payer MEDICARE, OTHER, SELFPAY ==
--- NOTE | 2025-02-09 12:09 | BI_ITS ---
EXAM: SCRN MAMM (CAD)W/VIANCA BILAT DATE: 02/09/2025 CLINICAL HISTORY: F, Age 74 y/o , SCREENING TECHNIQUE: Procedure Code: [id number] Modality: MG Procedure: SCRN MAMM (CAD)W/VIANCA BILAT COMPARISON: Prior exam(s) were compared FINDINGS: TISSUE DENSITY: The breasts are heterogeneously dense, which may obscure small masses. Bilateral Breast Mammographic Findings: No significant masses, calcifications or other abnormalities are identified. BI/SCRN MAMM (CAD)W/VIANCA BILAT IMPRESSION: No mammographic evidence of malignancy. OVERALL FINAL ASSESSMENT BI-RADS 1: NEGATIVE. RECOMMENDATION: Routine annual follow-up in 1 Year Additional Recommendation none A letter with findings and recommendations will be mailed to the patient. Reading Location: [id number]
--- OUTSIDE RECORDS SUMMARY | 2025-02-09 12:47 | XMS RPT_ITS | CCD ---
Author Organization [facility] Care Team Providers Care Line Construction Supervisor Name Role Phone Jose Drake MD Unavailable [phone] Verona Smith Unavailable Unavailable Jose Drake MD Unavailable Malys, Vanessa Attending Unavailable Malys, Vanessa Referring Unavailable Malys, Vanessa Primary Care Unavailable Malys, Vanessa Attending Unavailable Malys, Vanessa Referring Unavailable Malys, Vanessa Primary Care Unavailable Malys, Vanessa Attending Unavailable Malys, Vanessa Referring Unavailable Malys, Vanessa Primary Care Unavailable Unavailable Primary Care Provider Unavailabl e TESTRAKE, SILKE Attending Unavailable TESTRAKE, SILKE Referring Unavailable TESTRAKE, SILKE Referring Unavailable TESTRAKE, SILKE Attending Unavailable TESTRAKE, SILKE Referring Unavailable TESTRAKE, SILKE Attending Unavailable TESTRAKE, SILKE Referring Unavailable Allergies Allergy Classification Reported Allergen(s) Allergy Type Date of Onset Reaction(s) Facility (3 sources) penicillin v drug allergy 6 Hives/ sob [facility] Work Phone: (3 sources) HYDROcodone Drug Allergy 9 mental status change [facility] (5 sources) Penicillins; Translations: [PENICILLINS] Allergy to substance 6 Anaphylaxis [facility] (1 source) HYDROcodone Drug Allergy 9 [facility] (1 source) Penicillins Drug allergy (disorder) 9 [facility] (12 sources) Acetaminophen / HYDROcodone; Translations: [HYDROCODONE-ACET AMINOPHEN] Drug Allergy 5 Mental Status Change [facility] Work Phone: (6 sources) Penicillins Drug Allergy [address] [facility] (4 sources) Penicillins Drug Allergy [address] [facility] Medications Current Medications Medication Drug Class(es) Dates Sig (Normalized) Sig (Original) cholecalciferol 0.05 mg oral capsule (6 sources) Vitamin D Start: 08-23-2018 take 2000 [IU] by mouth once daily Cholecalciferol (Vitamin D3) Active 2000 UNIT PO DAILY August 23, 2018 12:00am Start: 05-09-2015 take 2 tablets by mo ut once daily VITAMIN D3 2000 UNIT TABS 2 po daily CHOLECALCIFEROL [id number] Vanessa Craig DO doxycycline hyclate 100 mg oral capsule (10 sources) Tetracycline-class Drug Start: 03-16-2024 take 1 capsule by mouth twice daily doxycycline hyclate (VIBRAMYCIN) 100 mg capsule Take 1 capsule (100 mg) by mouth two times a day. 14 capsule 03/16/2024 Active latanoprost 0.05 mg/ml ophthalmic solution (14 sources) Prostaglandin Analog Start: 01-24-2024 take 1 drop(s) into the eye(s) once daily at bedtime latanoprost (XALATAN) 0.005 % ophthalmic solution INSTILL 1 DROP INTO EACH EYE NIGHTLY AT BEDTIME 01/24/2024 Active Start: 08-23-2018 Latanoprost Ac tive 1 DRP OPHTHALMIC EVERY EVENING August 23, 2018 12:00am levothyroxine sodium 0.125 mg oral capsule (17 sources) l-Thyroxine Start: 08-23-2018 take 1 capsule by mouth once daily levothyroxine 125 mcg capsule Active 125 MCG PO DAILY August 23, 2018 12:00am Start: 05-09-2015 take 1 tablet by sukumar once daily LEVOTHYROXINE SODIUM 125 MCG TABS 1 po daily except on wednesday LEVOTHYROXINE SODIUM [id number] Vanessa Craig DO Start: 04-06-2005 SYNTHROID 25 M CG TAB Take one(1) tablet daily. 0 04/06/2005 Active lisinopril 10 mg oral tablet (17 sources) Angiotensin Converting Enzyme Inhibitor Start: 01-17-2024 take 1 tablet by mouth once lisinopril (ZESTRIL) 10 mg tablet Take 1 tablet by mouth every afternoon. 01/17/2024 Active Start: 08-23-2018 take 10 mg by mouth once daily Lisinopril Active 10 MG PO DAILY August 23, 2018 12:00am Start: 05-09-2015 take 1 tablet by sukumar th once daily LISINOPRIL 5 MG TABS 1 po daily LISINOPRIL [id number] Cristhian Bonilla DO simvastatin 20 mg oral tablet (17 sources) HMG-CoA Reductase Inhibitor Start: 02-25-2024 take 1 tablet by mouth once simvastatin (ZOCOR) 20 mg tablet Take 1 tablet by mouth every afternoon. 02/25/2024 Active Start: 08-23-2018 take 20 mg by mouth at bedtime Simvastatin Active 20 MG PO AT BEDTIME August 23, 2018 12:00am Start: 11-09-2016 take 1 tablet by sukumar th once daily SIMVASTATIN 20 MG TABS One tablet by mouth daily SIMVASTATIN [id number] Verona Delio Luis 12 hr timolol 5 mg/ml ophthalmic solution (14 sources) beta-Adrenergic Mercedes Start: 02-25-2024 timolo l maleate (TIMOPTIC) 0.5 % ophthalmic solution Use 1 Drop in both eyes two times a day. 02/25/2024 Active Start: 05-09-2015 take 1 drop(s) into the eye(s) once daily TIMOLOL MALEATE 0.25 % SOLN one drop to both eyes once daily TIMOLOL MALEATE [id number] Vanessa Craig DO Start: 05-09-2015 take 1 drop(s) into the eye(s) once daily TIMOLOL MALEATE 0.25 % SOLN one drop to both eyes once daily TIMOLOL MALEATE [id number] Vanessa Craig DO Start: 05-09-2015 take 1 drop(s) into the eye(s) once daily TIMOLOL MALEATE 0.25 % SOLN one drop to both eyes once daily TIMOLOL MALEATE [id number] Vanessa Craig DO Completed/Discontinued Medications Medication Drug Class(es) Dates Sig (Normalized) Sig (Original) CALCIUM CARBONATE TABS (3 sources) Start: 05-09-2015 take 1 tablet by mouth once daily CALCIUM 600 TABS 1 po daily CALCIUM CARBONATE TABS [id number] Vanessa Craig DO Start: 05-09-2015 take 1 tablet by sukumar th once daily CALCIUM 600 TABS 1 po daily CALCIUM CARBONATE TABS [id number] Vanessa Kebede Aleksandarkendal DO Start: 05-09-2015 take 1 tablet by sukumar th once daily CALCIUM 600 TABS 1 po daily CALCIUM CARBONATE TABS [id number] Vanessa Delio Kiara DO ezetimibe 10 mg / simvastatin 20 mg oral tablet (3 sources) HMG-CoA Reductase Inhibitor, Dietary Cholesterol Absorption Inhibitor Start: 05-09-2015 take 1 tablet by mouth once daily VYTORIN 10-20 MG TABS 1 po daily EZETIMIBE-SIMVASTATIN [id number] Vanessa Craig DO Start: 05-09-2015 take 1 tablet by sukumar th once daily VYTORIN 10-20 MG TABS 1 po daily EZETIMIBE-SIMVASTATIN [id number] Vanessa Craig DO Problems Active Problems Problem Classification Problem Date Documented Da te Episodic/Chronic Diabetes mellitus without complication (1 source) Type 2 diabetes mellitus without complications; Translations: [Type 2 diabetes mellitus without complications] Onset: 02-07-2024 Chronic Disorders of lipid metabolism (3 sources) Hyperlipidemia; Translations: [Hyperlipidemia, unspecified] Onset: 05-09-2015 05-27-2015 Chronic Fracture of lower limb (4 sources) Closed fracture of great toe; Translations: [Displaced unspecified fracture of left great toe, initial encounter for closed fracture] Onset: 05-22-2024 05-22-2024 Episodic Open wounds of extremities (4 sources) Open wound of toe; Translations: [Unspecified open wound of unspecified toe(s) without damage to nail, initial encounter] Onset: 04-04-2024 04-04-2024 Episodic Other connective tissue disease (3 sources) Pain in toe; Translations: [Pain in left toe(s)] 03-16-2024 Episodic Other connective tissue disease (1 source) Pain in left toe(s); Translations: [Pain and swelling of toe of left foot] Onset: 03-16-2024 Episodic Other connective tissue disease (1 source) Other specified soft tissue disorders; Translations: [Pain and swelling of toe of left foot] Onset: 03-16-2024 Episodic Other screening for suspected conditions (not mental disorders or infectious disease) (4 sources) Patient encounter status; Translations: [Encounter for screening for malignant neoplasm of intestinal tract, unspecified] Onset: 03-15-2024 08-23-2018 Episodic Skin and subcutaneous tissue infections (1 source) Cellulitis and abscess of toe; Translations: [Cellulitis of left toe] 03-16-2024 Episodic Thyroid disorders (4 sources) Hypothyroidism; Translations: [Hypothyroidism, unspecified] Onset: 05-09-2015 05-27-2015 Chronic Past or Other Problems Problem Classification Problem Date Documented Da te Episodic/Chronic Other and unspecified benign neoplasm (3 sources) Lipoma (clinical); Translations: [Benign lipomatous neoplasm, unspecified] Onset: 11-09-2016 11-09-2016 Episodic Results Test Name Value Interpretation Reference Range Facility [facility] 05-27-2024 CNPN Telephone (PODIWS) DORA GUZMÁN ([id number]) 1950 F Date Time Provider Department 05/27/24 SILKE MOSES During your visit today, we recorded the following information about you: Silke Moses 05/27/2024 1:37 PM Signed Please call patient to inform her that fracture shows further healing. Progress as tolerated ZACHERY Hammer Amelia, LPN 05/29/2024 3:16 PM Signed Patient notified of results and provider's instructions. Patient verbalizes understanding. Sarita Cuenca LPN Allergies As of Date: 05/27/2024 Noted Allergy Reaction HYDROCODONE-ACETAMINO PHEN 03/16/2024 1 - Mental Status Change PENICILLINS 04/06/2005 10 - Anaphylaxis Date Reviewed: 05/22/2024 Reviewed by: Ruba Garcia, RN - Fully Assessed Reason for Visit: Patient Update [1234] Prescriptions as of 05/29/2024 - simvastatin (ZOCOR) 20 mg tablet Take 1 tablet by mouth every afternoon. - lisinopril (ZESTRIL) 10 mg tablet Take 1 tablet by mouth every afternoon. - latanoprost (XALATAN) 0.005 % ophthalmic solution INSTILL 1 DROP INTO EACH EYE NIGHTLY AT BEDTIME - timolol maleate (TIMOPTIC) 0.5 % ophthalmic solution Use 1 Drop in both eyes two times a day. - doxycycline hyclate (VIBRAMYCIN) 100 mg capsule Take 1 capsule (100 mg) by mouth two times a day. - SYNTHROID 25 MCG TAB Take one(1) tablet daily. Problem List As Of Date: 05/27/2024 (None) Encounter Status:Closed by SARITA CUENCA on 05/29/24 [facility] CNOVon 05-22-2024 CNOV Office Visit (PODIWS ) DORA GUZMÁN ([id number]) 1950 F Date Time Provider Department 05/22/24 8:30 AM SILKE MOSES PODIWS During your visit today, we recorded the following information about you: Ruba Garcia RN 05/22/2024 8:34 AM Signed Patient presents with: Left Great Toe - Established Patient, Follow Up, Fracture, Ingrown Nail Patient presents for follow up left great toe. Had a total nail avulsion done 03/16/24. Xray from 04/04/24 showed healing fracture of distal phalanx left great toe. Denies any pain to the toe, but wanted it evaluated before resuming her normal amount of walking. BESS 04/04/24 Silke Moses 05/22/2024 8:34 AM Signed FOLLOW UP PODIATRIC OFFICE VISIT Chief Complaint: This 73 year old who presents for follow up:left hallux fracture Patient presents to clinic for follow-up left hallux fracture She injured this toe several months ago. Overall, she is doing well. Does have some swelling and redness. Denies any pain Had nail removed at time of fracture due to lifting of nail plate. This is now healed PAIN EVALUATION No data found in the last 1 encounters. No results found for: HBA1C PCP: No primary care provider on file. PAST MEDICAL HISTORY Diagnosis Date Allergic rhinitis, cause unspecified Allergic rhinitis Diabetes mellitus (HCC) Essential hypertension Glaucoma 2000 Mixed hyperlipidemia Hyperlipidemia Thyrotoxicosis without mention of goiter or other cause, without mention of thyrotoxic crisis or storm Hyperthyroidism Current Outpatient Medications Medication Sig simvastatin (ZOCOR) 20 mg tablet Take 1 tablet by mouth every afternoon. lisinopril (ZESTRIL) 10 mg tablet Take 1 tablet by mouth every afternoon. latanoprost (XALATAN) 0.005 % ophthalmic solution INSTILL 1 DROP INTO EACH EYE NIGHTLY AT BEDTIME timolol maleate (TIMOPTIC) 0.5 % ophthalmic solution Use 1 Drop in both eyes two times a day. SYNTHROID 25 MCG TAB Take one(1) tablet daily. doxycycline hyclate (VIBRAMYCIN) 100 mg capsule Take 1 capsule (100 mg) by mouth two times a day. (Patient not taking: Reported on 05/22/2024) No current facility-administered medications for this visit. ALLERGIES Allergen Reactions Hydrocodone-Acetami* Mental Status Change Penicillins Anaphylaxis PAST SURGICAL HISTORY Procedure Laterality Date BIOPSY BREAST OPEN INCISIONAL stertactic biopsy COLONOSCOPY FLX DX W/COLLJ SPEC WHEN PFRMD Colonoscopy LAPAROSCOPY SURG CHOLECYSTECTOMY Cholecystectomy, lap NEUROPLASTY AND/TRANSPOS MEDIAN NRV CARPAL TUNNE Carpal tunnel decomp TONSILLECTOMY PRIMARY/SECONDARY Tonsillectomy TOTAL ABDOMINAL HYSTERECT W/WO RMVL TUBE OVARY Hysterectomy, MOON Physical Exam: OBJECTIVE: Constitutional: Pt is a well developed 73 year old female who is alert, oriented, cooperative and in no apparent distress. Eyes: Following during examination. No redness or drainage. Respiratory: RR normal and nonlabored. Even breathing. No evidence of distress. Psychology: Patient is engaged during conversation. Normal affect and mood. Does not appear depressed or anxious. NVSI unchanged from previous visit. Dermatological: Nails 1-5 b/l are normal. Webspaces clean and dry 1-4 b/l. Skin appears well hydrated and supple. good color, texture, turgor. No open lesions present. Callus present to b/l hallux Musculoskeletal/Ortho paedic: Patient has no pain to palpation of left hallux ipj Mild swelling is noted to left hallux ipj Xrays from March 16 and April 04 reviewed. Healing fracture is noted ASSESSMENT: (I93.767A) Closed non-physeal fracture of phalanx of left great toe, unspecified phalanx, initial encounter (primary encounter diagnosis) PLAN: Discussed fracture of left hallux. Will repeat xrays today to assure further healing is noted. If further healing noted, can continue with activity as tolerated Nail is starting to return. No signs of infection Callus reduced with dremmel today to b/l hallux. Can continue with pummice stone prn. Will notify patient of xray results Silke Moses DPM Allergies As of Date: 05/22/2024 Noted Allergy Reaction HYDROCODONE-ACETAMINO PHEN 03/16/2024 1 - Mental Status Change PENICILLINS 04/06/2005 10 - Anaphylaxis Date Reviewed: 05/22/2024 Reviewed by: Ruba Garcia RN - Fully Assessed Reason for Visit: Established Patient [175] Follow Up [171] Fracture [4131] Ingrown Nail [765] Primary Visit Diagnosis:Closed non-physeal fracture of phalanx of left great toe, unspecified phalanx, initial encounter [W90.711B] Order(s):XR TOE AP/LAT/OBL LEFT [[id number]] Order #: [id number] FUTURE Prescriptions as of 05/22/2024 - simvastatin (ZOCOR) 20 mg tablet Take 1 tablet by mouth every afternoon. - lisinopril (ZESTRIL) 10 mg tablet Take 1 tablet by mouth every afternoon. - latanoprost (XALATAN) 0.005 % o (more content not included)... Normal [facility] XR TOE 3V AP/LAT/OBL LTon XR TOE 3V AP/LAT/OBL LT * * *Final Report* * * DATE OF EXAM: May 22 2024 8:43AM [id number] [id number] - XR TOE 3V AP/LAT/OBL LT / PROCEDURE REASON: Closed non-physeal fracture of phalanx of left great toe, unspecified phalanx, i * * * * Physician Interpretation * * * * EXAM(s): XR TOE 3V AP/LAT/OBL LT..... HISTORY: 73 years old Clinical information: Closed non-physeal fracture of phalanx of left great toe, unspecified phalanx, initial encounter PT STATES LEFT GREAT TOE FX FOLLOW UP TECHNIQUE: Images: XR TOE 3V AP/LAT/OBL LT Comparison: 04/04/2024. RESULT: Findings: Bony resorption at the margins of the previously described fracture through the lateral aspect of the base of the distal phalanx of the great toe position and alignment unchanged. IMPRESSION: See above Plastering Supervisor: PSCB Transcribe Date/Time: May 26 2024 5:39P Dictated by : JOSUE BRIGHT MD This examination was interpreted and the report reviewed and electronically signed by: JOSUE BRIGHT MD on May 26 2024 5:40PM EST [id number] N Normal [facility] CNPCheryl 04-06-2024 CNPN Telephone (PODIWS) DORA GUZMÁN ([id number]) 1950 F Date Time Provider Department 04/06/24 SILKE MOSES During your visit today, we recorded the following information about you: Silke Moses 04/06/2024 10:39 PM Signed Please call patient to inform her that fracture shows further healing. Continue with activity as tolerated ZACHERY Hammer Amelia, LPN 04/07/2024 11:50 AM Signed Called patient to provided result and recommendation below. No response. Left VM. JOSIE Rivera Jennifer, MA 04/07/2024 12:40 PM Signed Patient returned phone call. Relayed message as below. Patient reports understanding. Sol Ellington MA Allergies As of Date: 04/06/2024 Noted Allergy Reaction HYDROCODONE-ACETAMINO PHEN 03/16/2024 1 - Mental Status Change PENICILLINS 04/06/2005 10 - Anaphylaxis Date Reviewed: 04/04/2024 Reviewed by: Ruba Garcia RN - Fully Assessed Reason for Visit: Results [95] Prescriptions as of 04/07/2024 - simvastatin (ZOCOR) 20 mg tablet Take 1 tablet by mouth every afternoon. - lisinopril (ZESTRIL) 10 mg tablet Take 1 tablet by mouth every afternoon. - latanoprost (XALATAN) 0.005 % ophthalmic solution INSTILL 1 DROP INTO EACH EYE NIGHTLY AT BEDTIME - timolol maleate (TIMOPTIC) 0.5 % ophthalmic solution Use 1 Drop in both eyes two times a day. - doxycycline hyclate (VIBRAMYCIN) 100 mg capsule Take 1 capsule (100 mg) by mouth two times a day. - SYNTHROID 25 MCG TAB Take one(1) tablet daily. Problem List As Of Date: 04/06/2024 (None) Encounter Status:Closed by SOL ELLINGTON on 04/07/24 [facility] CNOVon 04-04-2024 CNOV Office Visit (PODIWS ) DORA GUZMÁN ([id number]) 1950 F Date Time Provider Department 04/04/24 11:45 AM SILKE MOSES PODIWS During your visit today, we recorded the following information about you: Ruba Garcia RN 04/04/2024 3:24 PM Signed Patient presents with: Left Great Toe - Established Patient, Follow Up, Post Op Patient presents for follow up of left great toe total nail avulsion that was performed on 03/16/24. Still some tenderness with pressure. No redness or swelling. Silke Moses 04/04/2024 3:24 PM Signed FOLLOW UP PODIATRIC OFFICE VISIT Chief Complaint: This 73 year old who presents for follow up:left great toe cellulitis Patient presents to clinic for follow-up cellulitis of left hallux Was treated with total nail avulsion She feels well Patient denies any drainage Has completed antibiotic Does not complain of any pain. Is wearing regular shoe PAIN EVALUATION No data found in the last 1 encounters. No results found for: HBA1C PCP: No primary care provider on file. PAST MEDICAL HISTORY Diagnosis Date Allergic rhinitis, cause unspecified Allergic rhinitis Diabetes mellitus (HCC) Essential hypertension Glaucoma 1999 Mixed hyperlipidemia Hyperlipidemia Thyrotoxicosis without mention of goiter or other cause, without mention of thyrotoxic crisis or storm Hyperthyroidism Current Outpatient Medications Medication Sig simvastatin (ZOCOR) 20 mg tablet Take 1 tablet by mouth every afternoon. lisinopril (ZESTRIL) 10 mg tablet Take 1 tablet by mouth every afternoon. latanoprost (XALATAN) 0.005 % ophthalmic solution INSTILL 1 DROP INTO EACH EYE NIGHTLY AT BEDTIME timolol maleate (TIMOPTIC) 0.5 % ophthalmic solution Use 1 Drop in both eyes two times a day. doxycycline hyclate (VIBRAMYCIN) 100 mg capsule Take 1 capsule (100 mg) by mouth two times a day. SYNTHROID 25 MCG TAB Take one(1) tablet daily. No current facility-administered medications for this visit. ALLERGIES Allergen Reactions Hydrocodone-Acetami* Mental Status Change Penicillins Anaphylaxis PAST SURGICAL HISTORY Procedure Laterality Date BIOPSY BREAST OPEN INCISIONAL stertactic biopsy COLONOSCOPY FLX DX W/COLLJ SPEC WHEN PFRMD Colonoscopy LAPAROSCOPY SURG CHOLECYSTECTOMY Cholecystectomy, lap NEUROPLASTY AND/TRANSPOS MEDIAN NRV CARPAL TUNNE Carpal tunnel decomp TONSILLECTOMY PRIMARY/SECONDARY Tonsillectomy TOTAL ABDOMINAL HYSTERECT W/WO RMVL TUBE OVARY Hysterectomy, MOON Physical Exam: OBJECTIVE: Constitutional: Pt is a well developed 73 year old female who is alert, oriented, cooperative and in no apparent distress. Eyes: Following during examination. No redness or drainage. Respiratory: RR normal and nonlabored. Even breathing. No evidence of distress. Psychology: Patient is engaged during conversation. Normal affect and mood. Does not appear depressed or anxious. NVSI unchanged from previous visit. Dermatological: Left hallux nail bed is now healed and no signs of infection Prior redness has resolved No pain or swelling of left foot Musculoskeletal/Ortho paedic: Patient has no pain to palpation of left hallux ASSESSMENT: (M79.675, M79.89) Pain and swelling of toe of left foot (primary encounter diagnosis) (S91.109A) Open wound of toe, initial encounter Fracture of left hallux PLAN: Patient is s/p total nail avulsion. The nail bed is healed and no signs of infection Reviewed cultures. She has completed appropriate antibiotic There has never been any deep wound so the concern for underlying bone infection is minimal Will repeat xrays to assure no new changes of bone. If any chage is present, suspect further healing of known fracture If no pain, can continue with activity as tolerated ZACHERY Hammer Matthew 04/04/2024 11:45 AM Signed Your nail bed is now healed Ok to shower Ok to swim Expect fracture to be nearly healed if not completely healed Ok to continue with activity as tolerated. Referring Provider: SILKE MOSES [[id number]] Allergies As of Date: 04/04/2024 Noted Allergy Reaction HYDROCODONE-ACETAMINO PHEN 03/16/2024 1 - Mental Status Change PENICILLINS 04/06/2005 10 - Anaphylaxis Date Reviewed: 04/04/2024 Reviewed by: Ruba Garcia RN - Fully Assessed Reason for Visit: Established Patient [175] Follow Up [171] Post Op [174] Primary Visit Diagnosis:Pain and swelling of toe of left foot [M79.675, M79.89] Other Visit Diagnosis:Open wound of toe, initial encounter [S91.109A] Order(s):XR TOE AP/LAT/OBL LEFT [[id number]] Order #: [id number] FUTURE Prescriptions as of 04/04/2024 - simvastatin (ZOCOR) 20 mg tablet Take 1 tablet by mouth every afternoon. - lisinopril (ZESTRIL) 10 mg tablet Take 1 tablet by mouth every afternoon. - latanoprost (XALATAN) 0.005 % ophthalmic solution INSTILL 1 DROP INT (more content not included)... Normal [facility] XR TOE 3V AP/LAT/OBL LTon XR TOE 3V AP/LAT/OBL LT * * *Final Report* * * DATE OF EXAM: Apr 04 2024 12:03PM [id number] [id number] - XR TOE 3V AP/LAT/OBL LT / PROCEDURE REASON: Open wound of toe, initial encounter * * * * Physician Interpretation * * * * PROCEDURE: Left great toe INDICATION: Open wound of toe, initial encounter .PT STATES FOLLOW UP LEFT FOOT GREAT TOE FX TWO MONTHS SINCE INJURY TECHNIQUE: XR TOE 3V AP/LAT/OBL LT COMPARISON: 03/16/2024 FINDINGS: Stable fracture of the base of the distal phalanx with evidence for mild interval healing. No bony destruction. Joint spaces are maintained. 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 Soft tissue swelling. IMPRESSION: Stable distal phalanx fracture Plastering Supervisor: PSCB Transcribe Date/Time: Apr 06 2024 10:39A Dictated by : DAWOOD IBRAHIM MD This examination was interpreted and the report reviewed and electronically signed by: DAWOOD IBRAHIM MD on Apr 06 2024 10:41AM EST [id number] N [facility] (PODIWS) DORA GUZMÁN ([id number]) 1950 F Date Time Provider Department 03/20/24 SILKE MOSES During your visit today, we recorded the following information about you: iSlke Moses 03/20/2024 3:36 PM Signed I called patient to check on her. She states the toe is improving. I instructed her to continue with the doxycycline. Continue with local wound care Silke Moses DPM Allergies As of Date: 03/20/2024 Noted Allergy Reaction HYDROCODONE-ACETAMINO PHEN 03/16/2024 1 - Mental Status Change PENICILLINS 04/06/2005 10 - Anaphylaxis Date Reviewed: 03/16/2024 Reviewed by: Sarita Cuenca LPN - Fully Assessed Reason for Visit: Results [95] Prescriptions as of 03/20/2024 - simvastatin (ZOCOR) 20 mg tablet Take 1 tablet by mouth every afternoon. - lisinopril (ZESTRIL) 10 mg tablet Take 1 tablet by mouth every afternoon. - latanoprost (XALATAN) 0.005 % ophthalmic solution INSTILL 1 DROP INTO EACH EYE NIGHTLY AT BEDTIME - timolol maleate (TIMOPTIC) 0.5 % ophthalmic solution Use 1 Drop in both eyes two times a day. - doxycycline hyclate (VIBRAMYCIN) 100 mg capsule Take 1 capsule (100 mg) by mouth two times a day. - SYNTHROID 25 MCG TAB Take one(1) tablet daily. Problem List As Of Date: 03/20/2024 (None) Encounter Status:Closed by RUBA GARCIA on 03/20/24 [facility] Bacteria Wnd Culton 03-16-19 Bacteria identified Cx Nom (Wound) ORGANISM ID: [id number] skin earnest ORGANISM ID: 2 Few Staphylococcus lugdunensis GRAM STAIN: No organisms seen Rare Polymorphonuclear leukocytes ORGANISM ID: 2 (STAPHYLOCOCCUS LUGDUNENSIS) ------ ANTIBIOTIC INTERPRETATION NATHAN STATUS REFERENCE RANGE ------ Oxacillin S 1 F Susceptible <=2 , Resistant >2 Oxacillin-susceptible staphylococci are susceptible to other penicilllinase-stable penicillins, beta-lactam/beta-lact amase inhibitor combinations, anti-staphylococcal cephems, and carbapenems. Erythromycin S <=0.25 F Susceptible <=0.5 , Intermediate >.5 , Resistant >4 Clindamycin S 0.25 F Susceptible <=0.5 , Intermediate >.5 , Resistant >2 Trimeth sulfameth S <=10 F Susceptible <=40 , Resistant >40 Vancomycin S <=0.5 F Susceptible <=4 , Intermediate >4 , Resistant >16 Rifampin S <=0.5 F Susceptible <=1 , Intermediate >1 , Resistant >2 Rifampin should not be used alone for antimicrobial therapy. Tetracycline S <=1 F Susceptible <=4 , Intermediate >4 , Resistant >8 Doxycycline S <=0.5 F Susceptible <=4 , Intermediate >4 , Resistant >8 Abnormal [facility] Comment on above: Performed By: #### 6 462-6 ####[facility] LABCLIA [id number] [place] [id number] [facility] CNOVon 03-16-2024 CNOV Office Visit (PODIWS ) DORA GUZMÁN ([id number]) 1950 F Date Time Provider Department 03/16/24 3:45 PM SILKE MOSES PODIWS During your visit today, we recorded the following information about you: Sarita Cuenca LPN 03/16/2024 9:55 PM Signed AMB ROOMING INTAKE FLOWSHEET DATA Risk Screening Do you have concerns about personal safety or safety in the home?: No Patient presents with: Left Great Toe - New, Pain, Ingrown Toenail Injury to nail 6-8 weeks ago. JOSIE Rivera Matthew 03/16/2024 9:55 PM Signed Initial Podiatric Office Visit: Chief Complaint: This 73 year old female who presents with chief complaint:left great toe swelling HPI Patient presents to clinic for evaluation of left great toe She stubbed her left great toe 2 months ago resulting in her toe bending backward She initially thought it would get better so she did not seek any medical attention About one month later, she presented to her pcp who placed her on an antibiotic. The antibiotic did not help with any redness or swelling The toe still looks the same., that is swelling and redness She denies any drainage She is diabetic diet controlled. PAIN EVALUATION No data found in the last 1 encounters. No results found for: HBA1C PCP: No primary care provider on file. PAST MEDICAL HISTORY Diagnosis Date Allergic rhinitis, cause unspecified Allergic rhinitis Diabetes mellitus (HCC) Essential hypertension Glaucoma 1999 Mixed hyperlipidemia Hyperlipidemia Thyrotoxicosis without mention of goiter or other cause, without mention of thyrotoxic crisis or storm Hyperthyroidism Current Outpatient Medications Medication Sig simvastatin (ZOCOR) 20 mg tablet Take 1 tablet by mouth every afternoon. lisinopril (ZESTRIL) 10 mg tablet Take 1 tablet by mouth every afternoon. latanoprost (XALATAN) 0.005 % ophthalmic solution INSTILL 1 DROP INTO EACH EYE NIGHTLY AT BEDTIME timolol maleate (TIMOPTIC) 0.5 % ophthalmic solution Use 1 Drop in both eyes two times a day. SYNTHROID 25 MCG TAB Take one(1) tablet daily. No current facility-administered medications for this visit. ALLERGIES Allergen Reactions Hydrocodone-Acetami* Mental Status Change Penicillins Anaphylaxis PAST SURGICAL HISTORY Procedure Laterality Date BIOPSY BREAST OPEN INCISIONAL stertactic biopsy COLONOSCOPY FLX DX W/COLLJ SPEC WHEN PFRMD Colonoscopy LAPAROSCOPY SURG CHOLECYSTECTOMY Cholecystectomy, lap NEUROPLASTY AND/TRANSPOS MEDIAN NRV CARPAL TUNNE Carpal tunnel decomp TONSILLECTOMY PRIMARY/SECONDARY Tonsillectomy TOTAL ABDOMINAL HYSTERECT W/WO RMVL TUBE OVARY Hysterectomy, MOON FAMILY HISTORY Problem Relation Age of Onset Glaucoma Mother Hypertension Mother Hyperlipidemia Mother Alzheimer's Disease Mother other (other) Father part of lung missing for GSW and black lung Schizophrenia Sister No Known Problems Sister car accident 35 year old Alzheimer's Disease Brother Neuropathy Brother Vertigo Brother Alzheimer's Disease Maternal Grandmother Heart Attack Maternal Grandfather Blindness Paternal Grandmother at 106 year old Heart Attack Paternal Grandfather Social History Tobacco Use Smoking status: Never Smokeless tobacco: Never Substance Use Topics Alcohol use: No Drug use: No REVIEW OF SYSTEMS GENERAL: Negative for Malaise, significant weight loss, fever RESPIRATORY: Negative for cough, wheezing and shortness of breath CARDIOVASCULAR: Negative for chest pain, leg swelling and palpitations GI: Negative for abdominal discomfort, blood in stools or black stools and change in bowel habits : Negative for dysuria, frequency and incontinence MUSCULOSKELETAL: Negative for joint pain or swelling, back pain, and muscle pain. SKIN: Negative for lesions, rash, and itching. HEMATOLOGY/LYMPHOLOGY Negative for prolonged bleeding, bruising easily, and swollen nodes. ENDOCRINE: Negative for cold or heat intolerance, polyuria, polydipsia and goiter. NEURO: negative Physical Exam: Constitutional: Pt is a well developed 73 year old female who is alert, oriented and cooperative Eyes: Following during examination. No redness or drainage. Respiratory: RR normal and nonlabored. Even breathing. No evidence of distress or shortness of breath. Psychology: Patient is engaged during conversation. Normal affect and mood. Does not appear depressed or anxious during encounter. Vascular: Dorsalis pedis and posterior tibial pulses palpable as b/l Capillary Fill time < 5 seconds to digits 1-5 b/l Skin temperature warm to warm proximal to distal b/l Hair growth present to digits Neurological: intact light touch/epicritic sensation Vibratory sensation intact to hallux b/l intact protective sensation no significant neurological deficits Dermatological: Left hallux proxi (more content not included)... Normal [facility] XR FOOT 3V AP/LAT/OBL LTon 0 03-16-2024 XR FOOT 3V AP/LAT/OBL LT * * *Final Report* * * DATE OF EXAM: Mar 16 2024 4:28PM [id number] [id number] - XR FOOT 3V AP/LAT/OBL LT / PROCEDURE REASON: multiple diagnoses * * * * Physician Interpretation * * * * EXAM TITLE: XR FOOT 3V AP/LAT/OBL LT EXAM DATE/TIME: 03/16/2024 4:28 PM COMPARISON: None CLINICAL INDICATION/HISTORY: Injury 2 months ago. TECHNIQUE: AP, lateral and oblique views of the left foot are presented. FINDINGS: Age indeterminate fractures are visualized in the distal phalanx of the first digit, with some callus formation. The joint spaces are well preserved. The bones are osteopenic. Small calcaneal enthesophyte noted. There are mild degenerative changes in the midfoot. There is no significant soft tissue swelling. IMPRESSION: Age indeterminate first digit fracture as described above. Plastering Supervisor: PSCB Transcribe Date/Time: Mar 16 2024 4:36P Dictated by : NICHOL LAWRENCE MD This examination was interpreted and the report reviewed and electronically signed by: NICHOL LAWRENCE MD on Mar 16 2024 4:38PM EST [id number] Normal [facility] XR Foot - left AP and Latera l and obliqueon 03-16-2024 IMPRESSION: Age indeterminate first digit fracture as described above. Plastering Supervisor: HARISH Transcribe Date/Time: Mar 16 2024 4:36P Dictated by : NICHOL LAWRENCE MD This examination was interpreted and the report reviewed and electronically signed by: NICHOL LAWRENCE MD on Mar 16 2024 4:38PM [facility] DIVISION OF RADIOLOGY * * *Final Report* * * DATE OF EXAM: Mar 16 2024 4:28PM [id number] - XR FOOT 3V AP/LAT/OBL LT / PROCEDURE REASON: multiple diagnoses * * * * Physician Interpretation * * * * EXAM TITLE: XR FOOT 3V AP/LAT/OBL LT EXAM DATE/TIME: 03/16/2024 4:28 PM COMPARISON: None CLINICAL INDICATION/HISTORY: Injury 2 months ago. TECHNIQUE: AP, lateral and oblique views of the left foot are presented. FINDINGS: Age indeterminate fractures are visualized in the distal phalanx of the first digit, with some callus formation. The joint spaces are well preserved. The bones are osteopenic. Small calcaneal enthesophyte noted. There are mild degenerative changes in the midfoot. There is no significant soft tissue swelling. DIVISION OF RADIOLOGY Provider, [facility] - 03/16/2024 * * *Final Report* * * DATE OF EXAM: Mar 16 2024 4:28PM [id number] - XR FOOT 3V AP/LAT/OBL LT / PROCEDURE REASON: multiple diagnoses * * * * Physician Interpretation * * * * EXAM TITLE: XR FOOT 3V AP/LAT/OBL LT EXAM DATE/TIME: 03/16/2024 4:28 PM COMPARISON: None CLINICAL INDICATION/HISTORY: Injury 2 months ago. TECHNIQUE: AP, lateral and oblique views of the left foot are presented. FINDINGS: Age indeterminate fractures are visualized in the distal phalanx of the first digit, with some callus formation. The joint spaces are well preserved. The bones are osteopenic. Small calcaneal enthesophyte noted. There are mild degenerative changes in the midfoot. There is no significant soft tissue swelling. IMPRESSION IMPRESSION: Age indeterminate first digit fracture as described above. Plastering Supervisor: [facility] Transcribe Date/Time: Mar 16 2024 4:36P Dictated by : NICHOL LAWRENCE MD This examination was interpreted and the report reviewed and electronically signed by: NICHOL LAWRENCE MD on Mar 16 2024 4:38PM EST [facility] Radiology Study observation (narrative) [facility] XR Foot - left AP and Latera l and obliqueOrdered By: Ccf Provider on 03-16-[address] [facility] SCRN MAMM (CAD)W/VIANCA BILATo n 02-08-2024 SCRN MAMM (CAD)W/VIANCA BILAT [facility] Imaging Services [address] [place], [place] [address] SCRN MAMM (CAD)W/VIANCA BILAT MR#: [id number] Acct: [id number] Name: DORA GUZMÁN Rep #: [id number] : 1950 F 73 From: Kapil ren MD PCP: Dr. Vanessa Craig DO Status: [facility] Study: SCRN MAMM (CAD)W/VIANCA BILAT Date of Exam: 01/22 09/14 Exam# [id number] Ordering Dr: Vanessa Craig DO [id number] MAMMOGRAPHY - BILATERAL SCREENING REASON FOR EXAM: Female, 73 years old. Routine annual screening examination. PERTINENT HISTORY: Grandmother with breast cancer. History of prior right stereotactic breast biopsy. TECHNIQUE: Digital bilateral breast vianca (3D mammographic acquisition) in the CC and MLO projections. 2-D mediolateral oblique (MLO) and craniocaudad (CC) views of both breasts were obtained. CAD: Full Field Digital Mammography with Computer Added Detection was performed. COMPARISON: Comparison is made with prior study dated November 20, 2022 and October 31, 2021. FINDINGS: Breast Composition: There are scattered areas of fibroglandular density. There are no dominant masses or suspicious calcifications. A tissue clip marker is seen in the central posterior medial aspect of the right breast. Stable bilateral fat containing axillary lymph nodes. No other significant abnormalities are identified. There has been no significant change since the prior study. BI/SCRN MAMM (CAD)W/VIANCA BILAT IMPRESSION: Stable bilateral screening mammogram. Yearly follow-up mammogram recommended. (A) ASSESSMENT CATEGORY: BIRADS Category 2: Benign. A letter regarding these results will be sent to the patient by the facility within 30 days. Approximately 10% of breast cancers are not detected by mammography. A normal mammogram should not delay biopsy of a clinically suspicious abnormality. [id number] Electronically Signed: Kapil Dickens MD at 13:21 EST Reading Location ID and State: [address] [place] [address] , Service support , CC: Dr. Vanessa Craig, DO Plastering Supervisor: Signed Normal [facility] CBC W/Diff, Automatedon 12-23 Absolute Lymph 1.94 X10 3/uL Normal 0.83-4.51 [facility] Comment on above: Performed By: #### L 502.0250, L501.9520, L501.9985, L500.4100, L500.4050, L100.0100, L506.0400, L501.70886 #### [facility] Laboratory [address] [place], [place], [id number] Absolute Neut 5.1 X10 3/uL Normal 2.0-7.7 [facility] Comment on above: Performed By: #### L 502.0250, L501.9520, L501.9985, L500.4100, L500.4050, L100.0100, L506.0400, L501.43022 #### [facility] [address] [place], [place], [id number] Basophils/100 WBC (Bld) 0.4 % Normal 0-1 [facility] Comment on above: Performed By: #### L 502.0250, L501.9520, L501.9985, L500.4100, L500.4050, L100.0100, L506.0400, L501.53497 #### [facility] [address] [place], [address] Eosinophils/100 WBC (Bld) 1.2 % Normal 0-5 [facility] Comment on above: Performed By: #### L 502.0250, L501.9520, L501.9985, L500.4100, L500.4050, L100.0100, L506.0400, L501.75620 #### [facility] [address] [place], [address] Erythrocyte distribution width (RBC) [Ratio] 12.9 % Normal 11.6-14.6 [facility] Comment on above: Performed By: #### L 502.0250, L501.9520, L501.9985, L500.4100, L500.4050, L100.0100, L506.0400, L501.17802 #### [facility] [address] [place], [place], [phone] ([address] Hematocrit (Bld) [Volume fraction] 43.2 % Normal 37-47 [facility] Comment on above: Performed By: #### L 502.0250, L501.9520, L501.9985, L500.4100, L500.4050, L100.0100, L506.0400, L501.96619 #### [facility] [address] [place], [place], [phone] ([phone] Hemoglobin (Bld) [Mass/Vol] 14.2 g/dL Normal 12.0-15.0 [facility] Comment on above: Performed By: #### L 502.0250, L501.9520, L501.9985, L500.4100, L500.4050, L100.0100, L506.0400, L501.60710 #### [facility] [address] [place], [address] IG% 0.300 Normal 0.0-0.9 [facility] Comment on above: Result Comment: IG% - Immature Granulocytes (promyelocytes, myelocytes and metamyelocytes) > 1% indicates that a LEFT SHIFT is Present. Performed By: #### L 502.0250, L501.9520, L501.9985, L500.4100, L500.4050, L100.0100, L506.0400, L501.88682 #### [facility] [address] [place], [address] Lymphocytes/100 WBC (Bld) 25.1 % Normal 19-41 [facility] Comment on above: Performed By: #### L 502.0250, L501.9520, L501.9985, L500.4100, L500.4050, L100.0100, L506.0400, L501.14316 #### [facility] [address] [place], [address] MCH (RBC) [Entitic mass] 28.7 pg Normal 27.0-32.0 [facility] Comment on above: Performed By: #### L 502.0250, L501.9520, L501.9985, L500.4100, L500.4050, L100.0100, L506.0400, L501.39685 #### [facility] [address] [place], [address] MCHC (RBC) [Mass/Vol] 32.9 g/dL Normal 32-36 [facility] Comment on above: Performed By: #### L 502.0250, L501.9520, L501.9985, L500.4100, L500.4050, L100.0100, L506.0400, L501.15575 #### [facility] [address] [place], [address] MCV (RBC) [Entitic vol] 87.4 fL Normal 81-99 [facility] Comment on above: Performed By: #### L 502.0250, L501.9520, L501.9985, L500.4100, L500.4050, L100.0100, L506.0400, L501.38987 #### [facility] [address] [place], [address] Monocytes/100 WBC (Bld) 7.4 % Normal 0-10 [facility] Comment on above: Performed By: #### L 502.0250, L501.9520, L501.9985, L500.4100, L500.4050, L100.0100, L506.0400, L501.43902 #### [facility] [address] [place], [address] Neutrophils/100 WBC (Bld) 65.6 % Normal 47-70 [facility] Comment on above: Performed By: #### L 502.0250, L501.9520, L501.9985, L500.4100, L500.4050, L100.0100, L506.0400, L501.60557 #### [facility] [address] [place], [address] Nucleated RBC (Bld) [#/Vol] 0 10*3/uL Normal 0-5 [facility] Comment on above: Performed By: #### L 502.0250, L501.9520, L501.9985, L500.4100, L500.4050, L100.0100, L506.0400, L501.41800 #### [facility] [address] [place], [address] Platelet mean volume (Bld) [Entitic vol] 11.4 fL Normal 6.2-12.0 [facility] Comment on above: Performed By: #### L 502.0250, L501.9520, L501.9985, L500.4100, L500.4050, L100.0100, L506.0400, L501.82795 #### [facility] [address] [place], [address] Platelets (Bld) [#/Vol] 232 10*3/uL Normal 150-450 [facility] Comment on above: Performed By: #### L 502.0250, L501.9520, L501.9985, L500.4100, L500.4050, L100.0100, L506.0400, L501.93561 #### [facility] [address] [place], [address] RBC (Bld) [#/Vol] 4.94 10*6/uL Normal 4.2-5.4 [facility] Comment on above: Performed By: #### L 502.0250, L501.9520, L501.9985, L500.4100, L500.4050, L100.0100, L506.0400, L501.05849 #### [facility] [address] [place], [address] RDW SD 41.3 fl Normal 35.1-43.9 [facility] Comment on above: Performed By: #### L 502.0250, L501.9520, L501.9985, L500.4100, L500.4050, L100.0100, L506.0400, L501.21987 #### [facility] [address] [place], [address] WBC (Bld) [#/Vol] 7.7 10*3/uL Normal 4.4-11.0 [facility] Comment on above: Performed By: #### L 502.0250, L501.9520, L501.9985, L500.4100, L500.4050, L100.0100, L506.0400, L501.00470 #### [facility] [address] [place], [address] Comprehensive Metabolic Prof ilon 01-11-2024 Albumin [Mass/Vol] 3.8 g/dL Normal 3.2-5.0 [facility] Comment on above: Performed By: #### L 502.0250, L501.9520, L501.9985, L500.4100, L500.4050, L100.0100, L506.0400, L501.99806 #### [facility] [address] [place], [address] Albumin/Globulin [Mass ratio] 1.2 {ratio} Normal 0.9-2.4 [facility] Comment on above: Performed By: #### L 502.0250, L501.9520, L501.9985, L500.4100, L500.4050, L100.0100, L506.0400, L501.78346 #### [facility] [address] [place], [address] ALK P 63 U/L Normal 45-117 [facility] Comment on above: Performed By: #### L 502.0250, L501.9520, L501.9985, L500.4100, L500.4050, L100.0100, L506.0400, L501.19659 #### [facility] [address] [place], [place], [id number] ALT [Catalytic activity/Vol] 17 U/L Normal 13-56 [facility] Comment on above: Performed By: #### L 502.0250, L501.9520, L501.9985, L500.4100, L500.4050, L100.0100, L506.0400, L501.36475 #### [facility] [address] [place], [address] AST [Catalytic activity/Vol] 13 U/L Low 15-37 [facility] Comment on above: Performed By: #### L 502.0250, L501.9520, L501.9985, L500.4100, L500.4050, L100.0100, L506.0400, L501.96974 #### [facility] [address] [place], [place], [phone] (186) Bilirubin [Mass/Vol] 0.90 mg/dL Normal 0.20-1.00 [facility] Comment on above: Result Comment: For patients on eltrombopag therapy, use of Dimension [place] TBIL is not recommended. Performed By: #### L 502.0250, L501.9520, L501.9985, L500.4100, L500.4050, L100.0100, L506.0400, L501.09634 #### [facility] [address] [place], [place], [phone] (952) BUN/CRE 25.6 RATIO High 10-20 [facility] Comment on above: Performed By: #### L 502.0250, L501.9520, L501.9985, L500.4100, L500.4050, L100.0100, L506.0400, L501.37291 #### [facility] [address] [place], [place], [id number] CA,Total 9.5 mg/dL Normal 8.5-10.1 [facility] Comment on above: Performed By: #### L 502.0250, L501.9520, L501.9985, L500.4100, L500.4050, L100.0100, L506.0400, L501.48660 #### [facility] [address] [place], [place], [phone] (054) Chloride [Moles/Vol] 105 mmol/L Normal 98-107 [facility] Comment on above: Performed By: #### L 502.0250, L501.9520, L501.9985, L500.4100, L500.4050, L100.0100, L506.0400, L501.54627 #### [facility] [address] [place], [place], [phone] (846) CO2 [Moles/Vol] 26.0 mmol/L Normal 21.0-32.0 [facility] Comment on above: Performed By: #### L 502.0250, L501.9520, L501.9985, L500.4100, L500.4050, L100.0100, L506.0400, L501.83043 #### [facility] [address] [place], [place], [phone] (573) Creatinine [Mass/Vol] 0.74 mg/dL Normal 0.55-1.02 [facility] Comment on above: Result Comment: The validity of the calculated GFR GFRAA in patients over 70 years has not been determined. Clinical correlation is essential. Performed By: #### L 502.0250, L501.9520, L501.9985, L500.4100, L500.4050, L100.0100, L506.0400, L501.62738 #### [facility] [address] [place], [place], [id number] EST GFR - AA 98 mL/min Normal >60 [facility] Comment on above: Result Comment: Afri can Lithuanian GFR Calc Performed By: #### L 502.0250, L501.9520, L501.9985, L500.4100, L500.4050, L100.0100, L506.0400, L501.34385 #### [facility] [address] [place], [place], [phone] (164) GAP 7 Normal 5-15 [facility] Comment on above: Performed By: #### L 502.0250, L501.9520, L501.9985, L500.4100, L500.4050, L100.0100, L506.0400, L501.03681 #### [facility] [address] [place], [address] (882) GFR/1.73 sq M.predicted among non-blacks MDRD (S/P/Bld) [Vol rate/Area] 81 mL/min/{1.73_m2} Normal >60 [facility] Comment on above: Result Comment: Non- GFR Calc Performed By: #### L 502.0250, L501.9520, L501.9985, L500.4100, L500.4050, L100.0100, L506.0400, L501.05215 #### [facility] [address] [place], [address] (177) Globulin (S) [Mass/Vol] 3.2 g/dL Normal 2.2-4.2 [facility] Comment on above: Performed By: #### L 502.0250, L501.9520, L501.9985, L500.4100, L500.4050, L100.0100, L506.0400, L501.46094 #### [facility] [address] [place], [address] Glucose [Mass/Vol] 177 mg/dL High 74-106 [facility] Comment on above: Result Comment: Fast ing Glucose result greater than or equal to 126 mg/dL suggests DIABETES MELLITUS per A.D.A. criteria. Performed By: #### L 502.0250, L501.9520, L501.9985, L500.4100, L500.4050, L100.0100, L506.0400, L501.64095 #### [facility] [address] [place], [address] (940) Potassium [Moles/Vol] 3.8 mmol/L Normal 3.5-5.1 [facility] Comment on above: Performed By: #### L 502.0250, L501.9520, L501.9985, L500.4100, L500.4050, L100.0100, L506.0400, L501.04489 #### [facility] [address] [place], [address] Sodium [Moles/Vol] 138 mmol/L Normal 136-145 [facility] Comment on above: Performed By: #### L 502.0250, L501.9520, L501.9985, L500.4100, L500.4050, L100.0100, L506.0400, L501.27456 #### [facility] [address] [place], [place], [phone] (619) T PROT 7.0 g/dL Normal 6.4-8.2 [facility] Comment on above: Performed By: #### L 502.0250, L501.9520, L501.9985, L500.4100, L500.4050, L100.0100, L506.0400, L501.53183 #### [facility] [address] [place], [place], [id number] Urea nitrogen [Mass/Vol] 19 mg/dL High 7-18 [facility] Comment on above: Performed By: #### L 502.0250, L501.9520, L501.9985, L500.4100, L500.4050, L100.0100, L506.0400, L501.90996 #### [facility] [address] [place], [address] Free T3on 01-11-2024 Free T3 [Mass/Vol] 2.3 pg/mL Normal 2.18-3.98 [facility] Comment on above: Performed By: #### L 502.0250, L501.9520, L501.9985, L500.4100, L500.4050, L100.0100, L506.0400, L501.20318 #### [facility] [address] [place], [address] Hemoglobin A1con 01-11-2024 HbA1c (Bld) [Mass fraction] 6.9 % High 3.8-5.6 [facility] Comment on above: Result Comment: Norm al < 5.7 % Prediabetic 5.7 - 6.4 % Diabetic >or= 6.5 % Please note range changes. Performed By: #### L 506.0400, L501.12169, L501.9520 #### [facility] [address] [place], [address] Lipid Profileon 01-11-2024 Cholesterol [Mass/Vol] 194 mg/dL Normal 200 [facility] Comment on above: Result Comment: <200 mg/dL Desirable 200-240 mg/dL Borderline >240 mg/dL High Risk Performed By: #### L 502.0250, [id number], L501.9985, L500.4100, L500.4050, L100.0100, L506.0400, L501.34956 #### [facility] [address] [place], [address] Cholesterol in HDL [Mass/Vol] 91 mg/dL Normal [facility] Comment on above: Result Comment: The drugs N-Acetylcysteine and Metamizole may falsely depress this assay. Reference Range HDL <40 mg/dL Low HDL Cholesterol HDL >or= 60 mg/dL High HDL Cholesterol Performed By: #### L 502.0250, [id number], L501.9985, L500.4100, L500.4050, L100.0100, L506.0400, L501.43678 #### [facility] [address] [place], [address] Cholesterol in LDL [Mass/Vol] 89 mg/dL Normal 0-130 [facility] Comment on above: Performed By: #### L 502.0250, [id number], L501.9985, L500.4100, L500.4050, L100.0100, L506.0400, L501.62880 #### [facility] [address] [place], [address] Cholesterol in VLDL [Mass/Vol] 14 mg/dL Normal 5-40 [facility] Comment on above: Performed By: #### L 502.0250, [id number], L501.9985, L500.4100, L500.4050, L100.0100, L506.0400, L501.92556 #### [facility] [address] [place], [address] Triglyceride [Mass/Vol] 71 mg/dL Normal [facility] Comment on above: Result Comment: The drugs N-Acetylcysteine and Metamizole may falsely depress this assay. Serum Triglycerides Reference Interval Normal <150 mg/dL Borderline high 150 - 199 mg/dL High 200 - 499 mg/dL Very High > or = 500 mg/dL Performed By: #### L 502.0250, L501.9520, L501.9985, L500.4100, L500.4050, L100.0100, L506.0400, L501.15782 #### [facility] [address] [place], [address] Microalb:Creat Ratio,Random URon 01-11-2024 Creatinine [Mass/Vol] 286.00 mg/dL Normal NO RAN GE EST. [facility] Comment on above: Performed By: #### L 502.0250, L501.9520, L501.9985, L500.4100, L500.4050, L100.0100, L506.0400, L501.85819 #### [facility] [address] [place], [address] MALB:CRE 19.7 mg/g CRE Normal <30 mg/g CRE [facility] Comment on above: Performed By: #### L 502.0250, [id number], L501.9985, L500.4100, L500.4050, L100.0100, L506.0400, L501.84600 #### [facility] [address] [place], [address] MICROALBUMIN,UR 56.3 mg/L Normal NO RANGE EST. [facility] Comment on above: Performed By: #### L 502.0250, [id number], L501.9985, L500.4100, L500.4050, L100.0100, L506.0400, L501.04667 #### [facility] [address] [place], [address] T4 Free Directon 01-11-2024 T4 FREE DIRECT 1.45 ng/dL Normal 0.76-1.46 [facility] Comment on above: Performed By: #### L 506.0400, L501.28431, L501.9520 #### [facility] [address] [place], [address] Thyroid Stim Hormone (TSH)on 01-11-2024 TSH 1.640 uIU/mL Normal 0.358-3.740 [facility] Comment on above: Performed By: #### L 502.0250, [id number], L501.9985, L500.4100, L500.4050, L100.0100, L506.0400, L501.22957 #### [facility] [address] [place], [address] Free T3on 07-06-2023 Free T3 [Mass/Vol] 1.8 pg/mL Low 2.18-3.98 [facility] Comment on above: Performed By: #### L 506.0400, L501.08913, L501.9520 #### [facility] [address] [place], [address] T4 Free Directon 07-06-2023 T4 FREE DIRECT 1.23 ng/dL Normal 0.76-1.46 [facility] Comment on above: Performed By: #### L 506.0400, L501.09404, L501.9520 #### [facility] [address] [place], [place], [id number] Thyroid Stim Hormone (TSH)on 07-06-2023 TSH 2.10 uIU/mL Normal 0.358-3.74 [facility] Comment on above: Performed By: #### L 506.0400, L501.51609, L501.9520 #### [facility] [address] [place], [address] Absolute lymphocyte countOrd ered By: Vanessa Craig on 12-08-2022 Lymphocytes Auto (Unsp spec) [#/Vol] 2.36 10*3/uL 0.83-4.51 [facility] Basophil percentageOrdered B y: Vanessa Craig on 12-08-2022 Basophils/100 WBC (Bld) 0.6 % 0-1 [facility] Bilirubin [Mass/Vol] 0.60 mg/dL 0.20-1.00 [facility] Comment on above: For patients on eltr ombopag therapy, use of Dimension [place] TBIL is not recommended. Chloride [Moles/Vol] 109 mmol/L 98-107 [facility] Cholesterol [Mass/Vol] 202 mg/dL <200 [facility] Comment on above: <200 mg/dL Desirable 200-240 mg/dL Borderline >240 mg/dL High Risk Eosinophils/100 WBC (Bld) 2.0 % 0-5 [facility] Glucose [Mass/Vol] 126 mg/dL 74-106 [facility] Comment on above: Fasting Glucose resu lt greater than or equal to 126 mg/dL suggests DIABETES MELLITUS per A.D.A. criteria. Neutrophils (Bld) [#/Vol] 3.5 10*3/uL 2.0-7.7 [facility] Neutrophils/100 WBC (Bld) 53.8 % 47-70 [facility] Potassium [Moles/Vol] 3.7 mmol/L 3.5-5.1 [facility] Protein [Mass/Vol] 6.9 g/dL 6.4-8.2 [facility] Sodium [Moles/Vol] 139 mmol/L 136-145 [facility] Triglyceride [Mass/Vol] 62 mg/dL <199 [facility] Comment on above: The drugs N-Acetylcy steine and Metamizole may falsely depress this assay.Serum Triglycerides Reference Interval Normal <150 mg/dL Borderline high 150 - 199 mg/dL High 200 - 499 mg/dL Very High > or = 500 mg/dL WBC (Bld) [#/Vol] 6.5 10*3/uL 4.4-11.0 [facility] Blood erythrocytes count (nu mber/volume)Ordered By: Vanessa Craig on 12-08-2022 RBC (Bld) [#/Vol] 4.89 10*6/uL 4.2-5.4 [facility] Blood hemoglobin measurement (mass/volume)Ordered By: Vanessa Craig on 12-08-2022 Hemoglobin (Bld) [Mass/Vol] 14.0 g/dL 12.0-15.0 [facility] Blood lymphocytes/100 leukoc ytesOrdered By: Vanessa Craig on 12-08-2022 Lymphocytes/100 WBC (Bld) 36.1 % 19-41 [facility] Blood monocytes/100 leukocyt esOrdered By: Vanessa Craig on 12-08-2022 Monocytes/100 WBC (Bld) 7.2 % 0-10 [facility] Blood platelet mean volumeOr dered By: Vanessa Craig on 12-08-2022 Platelet mean volume (Bld) [Entitic vol] 10.8 fL 6.2-12.0 [facility] Determination of erythrocyte mean corpuscular volume (MCV)Ordered By: Vanessa Craig on 12-08-2022 MCV (RBC) [Entitic vol] 90.4 fL 81-99 [facility] Hematocrit Auto (Bld) [Volum e fraction]Ordered By: Vanessa Craig on 12-08-2022 Hematocrit (Bld) [Volume fraction] 44.2 % 37-47 [facility] - Chemistry and C hemistry - challengeOrdered By: Vanessa Craig on 12-08-2022 ALP [Catalytic activity/Vol] 65 U/L 45-117 [facility] ALT [Catalytic activity/Vol] 21 U/L 13-56 [facility] CO2 [Moles/Vol] 26.0 mmol/L 21.0-32.0 [facility] Free T4 [Mass/Vol] 1.34 ng/dL 0.76-1.46 [facility] Globulin (S) [Mass/Vol] 3.3 g/dL 2.2-4.2 [facility] Urea nitrogen/Creatinine [Mass ratio] 25.2 mg/mg 10-20 [facility] - Hematology and Cell countsOrdered By: Vanessa Craig on 12-08-2022 Erythrocyte distribution width (RBC) [Entitic vol] 42.5 fL 35.1-43.9 [facility] Erythrocyte distribution width (RBC) [Ratio] 12.8 % 11.6-14.6 [facility] Immature granulocytes/100 WBC (Bld) 0.300 % 0.0-0.9 [facility] Comment on above: IG% - Immature Granu locytes (promyelocytes, myelocytes and metamyelocytes) > 1% indicates that a LEFT SHIFT is Present. MCH (RBC) [Entitic mass] 28.6 pg 27.0-32.0 [facility] Nucleated RBC/100 WBC (Bld) [Ratio] 0 % 0-5 [facility] MCHC Auto (RBC) [Mass/Vol]Or dered By: Vanessa Craig on 12-08-2022 MCHC (RBC) [Mass/Vol] 31.7 g/dL 32-36 [facility] No Panel InformationOrdered By: Vanessa Craig on 12-08-2022 Estimated GFR (MDRD) Amer 110 mL/min >60 [facility] Comment on above: GFR Calc Estimated GFR (MDRD) Non-Af Amer 91 mL/min >60 [facility] Comment on above: Non- GFR Calc Free Triiodothyronine (T3) pg/dL 1.8 pg/mL 2.18-3.98 [facility] Thyroid Stimulating Hormone (TSH) 4.16 uIU/mL 0.358-3.74 [facility] Urine Microalbumin/Creatinin e Ratio 6.5 mg/g CRE <30 [facility] Platelets bldOrdered By: Ching Craig on 12-08-2022 Platelets (Bld) [#/Vol] 231 10*3/uL 150-450 [facility] Serum or plasma albumin lin[place] urement (mass/volume)Ordered By: Vanessa Craig on 12-08-2022 Albumin [Mass/Vol] 3.6 g/dL 3.2-5.0 [facility] Serum or plasma albumin/glob ulin mass ratioOrdered By: Vanessa Craig on 12-08-2022 Albumin/Globulin [Mass ratio] 1.1 {ratio} 0.9-2.4 [facility] Serum or plasma calcium linwood urement (mass/volume)Ordered By: Vanessa Craig on 12-08-2022 Calcium [Mass/Vol] 8.8 mg/dL 8.5-10.1 [facility] Serum or plasma cholesterol in HDL measurement (mass/volume)Ordered By: Vanessa Craig on 12-08-2022 Cholesterol in HDL [Mass/Vol] 88 mg/dL >40 [facility] Comment on above: The drugs N-Acetylcy steine and Metamizole may falsely depress this assay. Reference Range HDL <40 mg/dL Low HDL Cholesterol HDL >or= 60 mg/dL High HDL Cholesterol Serum or plasma cholesterol in VLDL measurement (mass/volume)Ordered By: Vanessa Craig on 12-08-2022 Cholesterol in VLDL [Mass/Vol] 12 mg/dL 5-40 [facility] Serum or plasma creatinine m easurement (mass/volume)Ordered By: Vanessa Craig on 12-08-2022 Creatinine [Mass/Vol] 0.68 mg/dL 0.55-1.02 [facility] Comment on above: The validity of the calculated GFR & GFRAA in patients over 70 years has not been determined. Clinical correlation is essential. Serum or plasma low density lipoprotein (LDL) cholesterol measurement (mass/volume)Ordered By: Vanessa Craig on 12-08-2022 Cholesterol in LDL [Mass/Vol] 102 mg/dL 0-130 [facility] Serum or plasma urea nitroge n measurement (mass/volume)Ordered By: Vanessa Craig on 12-08-2022 Urea nitrogen [Mass/Vol] 17 mg/dL 7-18 [facility] Thin prep Papanicolaou smear with manual screeningOrdered By: Vanessa Craig on 12-08-2022 Thin prep Papanicolaou smear with manual screening 14 U/L 15-37 [facility] Thin prep Papanicolaou smear with manual screening 4 5-15 [facility] Thin prep Papanicolaou smear with manual screening 11.2 mg/L NO RANGE EST. [facility] Urine creatinine measurement (mass/volume)Ordered By: Vanessa Craig on 12-08-2022 Creatinine (U) [Mass/Vol] 171.00 mg/dL NO RANGE EST. [facility] - Chemistry and C hemistry - challengeOrdered By: Vanessa Craig on 09-03-2022 Free T4 [Mass/Vol] 1.16 ng/dL 0.76-1.46 [facility] No Panel InformationOrdered By: Vanessa Craig on 09-03-2022 Free Triiodothyronine (T3) pg/dL 1.8 pg/mL 2.18-3.98 [facility] Thyroid Stimulating Hormone (TSH) 1.28 uIU/mL 0.358-3.74 [facility] Absolute lymphocyte counton 10-30-2021 Lymphocytes Auto (Unsp spec) [#/Vol] 1.88 10*3/uL 0.83-4.51 [facility] Work Phone: Basophil percentageon 2021 Basophils/100 WBC (Bld) 0.5 % 0-1 [facility] Work Phone: Bilirubin [Mass/Vol] 0.50 mg/dL 0.20-1.00 [facility] Work Phone: Comment on above: For patients on eltr ombopag therapy, use of Dimension [place] TBIL is not recommended. Chloride [Moles/Vol] 105 mmol/L 98-107 [facility] Work Phone: Eosinophils/100 WBC (Bld) 1.5 % 0-5 [facility] Work Phone: Glucose [Mass/Vol] 156 mg/dL 74-106 [facility] Work Phone: Comment on above: Fasting Glucose resu lt greater than or equal to 126 mg/dL suggests DIABETES MELLITUS per A.D.A. criteria. Neutrophils (Bld) [#/Vol] 4.1 10*3/uL 2.0-7.7 [facility] Work Phone: Neutrophils/100 WBC (Bld) 61.9 % 47-70 [facility] Work Phone: Potassium [Moles/Vol] 4.4 mmol/L 3.5-5.1 [facility] Work Phone: Protein [Mass/Vol] 6.9 g/dL 6.4-8.2 [facility] Work Phone: Sodium [Moles/Vol] 139 mmol/L 136-145 [facility] Work Phone: WBC (Bld) [#/Vol] 6.6 10*3/uL 4.4-11.0 [facility] Work Phone: Blood erythrocytes count (nu mber/volume)on 10-30-2021 RBC (Bld) [#/Vol] 4.65 10*6/uL 4.2-5.4 [facility] Work Phone: Blood hemoglobin measurement (mass/volume)on 10-30-2021 Hemoglobin (Bld) [Mass/Vol] 13.4 g/dL 12.0-15.0 [facility] Work Phone: Blood lymphocytes/100 leukoc yteson 10-30-2021 Lymphocytes/100 WBC (Bld) 28.4 % 19-41 [facility] Work Phone: Blood monocytes/100 leukocyt eson 10-30-2021 Monocytes/100 WBC (Bld) 7.4 % 0-10 [facility] Work Phone: Blood platelet mean volumeon 10-30-2021 Platelet mean volume (Bld) [Entitic vol] 11.0 fL 6.2-12.0 [facility] Work Phone: Determination of erythrocyte mean corpuscular volume (MCV)on 10-30-2021 MCV (RBC) [Entitic vol] 87.3 fL 81-99 [facility] Work Phone: Hematocrit Auto (Bld) [Volum e fraction]on 10-30-2021 Hematocrit (Bld) [Volume fraction] 40.6 % 37-47 [facility] Work Phone: Laboratory - Chemistry and C hemistry - challengeon 10-30-2021 ALP [Catalytic activity/Vol] 69 U/L 45-117 [facility] Work Phone: ALT [Catalytic activity/Vol] 18 U/L 13-56 [facility] Work Phone: CO2 [Moles/Vol] 26.0 mmol/L 21.0-32.0 [facility] Work Phone: Free T4 [Mass/Vol] 1.87 ng/dL 0.76-1.46 [facility] Work Phone: Globulin (S) [Mass/Vol] 3.4 g/dL 2.2-4.2 [facility] Work Phone: Urea nitrogen/Creatinine [Mass ratio] 29.1 mg/mg 10-20 [facility] Work Phone: Laboratory - Hematology and Cell countson 10-30-2021 Erythrocyte distribution width (RBC) [Entitic vol] 41.6 fL 35.1-43.9 [facility] Work Phone: Erythrocyte distribution width (RBC) [Ratio] 13.0 % 11.6-14.6 [facility] Work Phone: Immature granulocytes/100 WBC (Bld) 0.300 % 0.0-0.9 [facility] Work Phone: Comment on above: IG% - Immature Granu locytes (promyelocytes, myelocytes and metamyelocytes) > 1% indicates that a LEFT SHIFT is Present. MCH (RBC) [Entitic mass] 28.8 pg 27.0-32.0 [facility] Work Phone: Nucleated RBC/100 WBC (Bld) [Ratio] 0 % 0-5 [facility] Work Phone: MCHC Auto (RBC) [Mass/Vol]on 10-30-2021 MCHC (RBC) [Mass/Vol] 33.0 g/dL 32-36 [facility] Work Phone: No Panel Informationon 10-30 Estimated GFR (MDRD) Amer 108 mL/min >60 [facility] Work Phone: Comment on above: GFR Calc Estimated GFR (MDRD) Non-Af Amer 89 mL/min >60 [facility] Work Phone: Comment on above: Non- GFR Calc Free Triiodothyronine (T3) pg/dL 2.4 pg/mL 2.18-3.98 [facility] Work Phone: Thyroid Stimulating Hormone (TSH) 0.14 uIU/mL 0.358-3.74 [facility] Work Phone: Platelets bldon 10-30-2021 Platelets (Bld) [#/Vol] 238 10*3/uL 150-450 [facility] Work Phone: Serum or plasma albumin linwood urement (mass/volume)on 10-30-2021 Albumin [Mass/Vol] 3.5 g/dL 3.2-5.0 [facility] Work Phone: Serum or plasma albumin/glob ulin mass ratioon 10-30-2021 Albumin/Globulin [Mass ratio] 1.0 {ratio} 0.9-2.4 [facility] Work Phone: Serum or plasma calcium lin[place] urement (mass/volume)on 10-30-2021 Calcium [Mass/Vol] 9.2 mg/dL 8.5-10.1 [facility] Work Phone: Serum or plasma creatinine m easurement (mass/volume)on 10-30-2021 Creatinine [Mass/Vol] 0.69 mg/dL 0.55-1.02 [facility] Work Phone: Comment on above: The validity of the calculated GFR & GFRAA in patients over 70 years has not been determined. Clinical correlation is essential. Serum or plasma urea nitroge n measurement (mass/volume)on 10-30-2021 Urea nitrogen [Mass/Vol] 20 mg/dL 7-18 [facility] Work Phone: Thin prep Papanicolaou smear with manual screeningon 10-30-2021 Thin prep Papanicolaou smear with manual screening 11 U/L 15-37 [facility] Work Phone: Thin prep Papanicolaou smear with manual screening 8 5-15 [facility] Work Phone: Office Visit: Right axillary needle core biopsyon 11-13-2016 Alcoholism counseling (procedure) no Invalid Interpretation Code [facility] [employer] Work Phone: Documentation of current medications (procedure) Done Invalid Interpretation Code [facility] [employer] Work Phone: Fall risk assessment No Invalid Interpretation Code [facility] [employer] Work Phone: Tobacco smoking status NHIS Never Invalid Interpretation Code [facility] [employer] Work Phone: Tobacco use CPHS Former smoker Invalid Interpretation Code [facility] [employer] Work Phone: Office Visit: abn US right a xillaon 11-09-2016 Fall risk assessment No [facility] [employer] Work Phone: Protein mass conc Done [facility] [employer] Work Phone: Protein mass conc no [facility] [employer] Work Phone: Tobacco smoking status NHIS Never [facility] [employer] Work Phone: Tobacco smoking status NHIS Former smoker [facility] [employer] Work Phone: Office Visit: abn US right a xillaon 10-12-2016 MG Breast screening Normal Bilateral Invalid Interpretation Code [facility] [employer] Work Phone: Vital Signs Date Time Vital Sign Value Performing Clinician Facility 11-09-2016 12:04-0400 BMI (Body Mass Index) 36.47 kg/m2 Jose Drake MD [facility] Work Phone: 11-09-2016 12:04-0400 Body Temperature 97.8 [degF] Jose Drake MD [facility] Work Phone: 11-09-2016 12:04-0400 BP Diastolic 84 mm[Hg] Jose Drake MD [facility] Work Phone: 11-09-2016 12:04-0400 BP Systolic 123 mm[Hg] Jose Drake MD [facility] [employer] Work Phone: 11-09-2016 12:04-0400 Height 172.72 cm Jose Drake MD [facility] Work Phone: 11-09-2016 12:04-0400 Pulse (Heart Rate) 74 /min Jose Drake MD [facility] [employer] Work Phone: 11-09-2016 12:04-0400 Respiratory Rate 20 /min Jose Drake MD [facility] [employer] Work Phone: 11-09-2016 12:04-0400 Weight 108.82 kg Jose Drake MD [facility] [employer] Work Phone: 05-09-2015 11:23-0400 BSA (Body Surface Area) 2.24 m2 Jose Drake MD [facility] [employer] Work Phone: Encounters Encounter Date Encounter Type Care Provider Facility Start: 05-27-2024 End: 07-27-2024 Follow-up encounter Silke Moess Work Phone: Podiatry Start: 05-27-2024 End: 05-29-2024 Telephone encounter Silke Moses Work Phone: Podiatry Comment on above: Patient Update Start: 05-22-2024 End: 05-22-2024 Subsequent hospital visit by physician Herbert [facility] [employer] Cervantes Work Phone: Radiology Comment on above: Closed non-physeal f racture of phalanx of left great toe, unspecified phalanx, initial encounter [S92.402A] Start: 05-22-2024 End: 05-22-2024 ambulatory SILKE MOSES Facility:[facility] Start: 05-22-2024 End: 05-22-2024 Patient encounter procedure Silke Moses Work Phone: Podiatry Comment on above: Closed non-physeal f racture of phalanx of left great toe, unspecified phalanx, initial encounter (Primary Dx) Start: 04-06-2024 End: 06-06-2024 Follow-up encounter Silke Moses Work Phone: Podiatry Start: 04-06-2024 End: 04-07-2024 Telephone encounter Silke Moses Work Phone: Podiatry Comment on above: Results Start: 04-04-2024 End: 04-04-2024 Subsequent hospital visit by physician Herbert [facility] [employer] Mob Work Phone: Radiology Comment on above: Open wound of toe, i nitial encounter [S91.109A] Start: 04-04-2024 End: 04-04-2024 ambulatory SILKE MOSES Facility:[facility] Start: 04-04-2024 End: 04-04-2024 Patient encounter procedure Silke Moses Work Phone: Podiatry Comment on above: Pain and swelling of toe of left foot (Primary Dx); Open wound of toe, initial encounter Start: 03-20-2024 End: 03-20-2024 Telephone encounter Silke Moses Work Phone: Podiatry Comment on above: Results Start: 03-16-2024 End: 03-16-2024 Subsequent hospital visit by physician Herbert [facility] [employer] Mob Work Phone: Radiology Comment on above: Pain and swelling of toe of left foot [M79.675, M79.89] Start: 03-16-2024 End: 03-16-2024 ambulatory SILKE MOSES Facility:[facility] Start: 03-16-2024 End: 03-16-2024 Patient encounter procedure Silke Moses Work Phone: Podiatry Comment on above: Pain and swelling of toe of left foot (Primary Dx); Cellulitis and abscess of toe of left foot Start: 02-08-2024 End: 02-08-[facility] Start: 01-11-2024 End: 01-11-2024 ambulatory [facility] Facility:[facility] Start: 07-06-2023 End: 07-06-2023 ambulatory [facility] Facility:[facility] Start: 12-08-2022 End: 12-08-2022 ambulatory [facility] Work Phone: Start: 12-08-2022 End: 12-08-2022 Patient encounter procedure [facility] Work Phone: Start: 11-20-2022 End: 11-20-2022 Patient encounter procedure [facility] Work Phone: Start: 09-03-2022 End: 09-03-2022 ambulatory [facility] Work Phone: Start: 09-03-2022 End: 09-03-2022 [facility] Start: 10-31-2021 End: 10-31-2021 ambulatory [facility] Work Phone: Start: 10-31-2021 End: 10-31-2021 Patient encounter procedure [facility] Start: 10-30-2021 End: 10-30-2021 Patient encounter procedure [facility] Procedures Date Procedure Procedure Detail Performing Clinician Start: 03-16-2024 Radex foot complete minimum 3 views Silke Moses Work Phone: Start: 11-20-2022 Screening mammography Start: 10-31-2021 Screening mammography Start: 11-13-2016 End: 11-13-2016 Bx breast w/device 1st lesion ultrasound guid Jose Drake MD Work Phone: Start: 11-13-2016 End: 11-13-2016 Bx breast 1st Lesion US imag Jose Drake MD Work Phone: Start: 01-03-2003 Lipid 1996 panel - S sarina or Plasma Silke Moses Work Phone: Plan of Treatment Date Care Activity Detail Author Start: 10-23-2024 Influenza vaccination Influenz a Vaccine (Season Ended) [facility] Start: 04-04-2024 End: 04-04-2024 Patient encounter procedure 04/04/2024 11:45 AM EST Office Visit Podiatry [address] [place] [address] Silke Moses [address] [id number] 2 Week follow up total nail avulsion Left hallux Podiatry Comment on above: 2 Week follow up tot al nail avulsion Left hallux Start: 02-23-2024 Advance Directive Discussion Advance Directive Discussion [facility] Start: 12-02-2023 RSV Vaccine (1 - 1-d ose 75+ series) RSV Vaccine (1 - 1-dose 75+ series) [facility] Start: 10-24-2023 Covid-19 Vaccine ( season) Covid-19 Vaccine ( season) [facility] Start: 10-24-2023 Influenza vaccination Influenza Vacc ine (#1) [facility] Start: 11-13-2016 End: 11-13-[address] [facility] Work Phone: Start: 11-09-2016 End: 11-09-[address] [facility] Work Phone: Start: 2013 Screening for osteoporosis Bone Density Screening [facility] Start: 01-04-2008 Lipid panel Lipid Screening [facility] Start: 01-03-2006 Diabetes Screening Diabetes Screenin g [facility] Start: 1998 Pneumococcal Vaccine : 50+ (1 of 1 - PCV) Pneumococcal Vaccine: 50+ (1 of 1 - PCV) [facility] Start: 1998 Shingrix Vaccine (1 of 2) Shingrix Vaccine (1 of 2) [facility] Start: 1993 Screening for malign ant neoplasm of colon [facility] Start: 12-02-1967 Urine microalbumin profile DTaP,Tdap,Td Vaccine (1 - Tdap) [facility] Start: 1966 Anxiety Screening Anxiety Screening [facility] Start: 1966 Depression Screening Depression Scre ening [facility] Start: 1966 Hepatitis C screening Hepatitis C Sc zenobia [facility] Bacteria identified in Wound by Culture BACTERIAL CULTURE AND GRAM STAIN, ABSCESS AND WOUND (AEROBIC CULTURE) Microbiology Routine Pain and swelling of toe of left foot Cellulitis and abscess of toe of left foot Ordered: 03/16/2024 [facility] Work Phone: Comment on above: Ordered: 03/16/2024 End: 05-04-2025 XR Toes - left 3 Views XR TOE AP/LAT/OBL LEFT Radiology Routine Open wound of toe, initial encounter 1 Occurrences starting 04/04/2024 until 05/04/2025 [facility] Work Phone: Comment on above: 1 Occurrences starti ng 04/04/2024 until 05/04/2025 XR Toes - left 3 Views XR TOE AP /LAT/OBL LEFT Radiology Routine Open wound of toe, initial encounter 04/04/2024 12:03 PM EST [facility] End: 06-21-2025 XR Toes - left 3 Views XR TOE AP/LAT/OBL LEFT Radiology Routine Closed non-physeal fracture of phalanx of left great toe, unspecified phalanx, initial encounter 1 Occurrences starting 05/22/2024 until 06/21/2025 [facility] Work Phone: Comment on above: 1 Occurrences starti ng 05/22/2024 until 06/21/2025 XR Toes - left 3 Views XR TOE AP /LAT/OBL LEFT Radiology Routine Closed non-physeal fracture of phalanx of left great toe, unspecified phalanx, initial encounter 05/22/2024 8:43 AM EDT [facility] Immunizations Immunization Date Immunization Notes Care Provider Reg olea 11-09-2016 influenza virus vacc ine, unspecified formulation Silke Moses Work Phone: [facility] Payers Date Payer Category Payer Self-pay [id number] 2020 Private Health Insurance MMO MED ICARE SUPPLEMENT [id number] 2020 Unknown MMO MMO MEDICARE SUPPLEMENT [id number] 2020-Present [phone] [address] [place] [address] Indemnity [id number] 2020 Unknown [id number] 2013 Medicare [id number] 2013 Medicare [id number] Private Health Insurance [employer] SR SUPPLEM ENT INS [id number] Unknown [id number] Unknown [id number] Unknown [id number] Social History Date Type Detail Facility Start: 08-24-2018 Tobacco smoking stat us NHIS Unknown if ever smoked [facility] Start: 1950 Sex Assigned At Female [facility] Start: 03-16-2024 Tobacco smoking stat us NHIS Never smoked tobacco [facility] Start: 03-16-2024 Tobacco use and exposure Smokeless tobacco non-user [facility] Start: 03-16-2024 End: 05-22-2024 Alcoholic beverage intake Current non-drinker of alcohol (finding) [facility] Start: 03-16-2024 End: 04-04-2024 History of Social function [facility] Start: 03-16-2024 End: 04-04-2024 Tobacco use panel [facility] Start: 1950 Sex assigned at Not on file [facility] National Score (1-10 0), lower number is lower risk [address] [facility] Clinical Notes 03-16-2024 to 05-29-2024 Telephone Encounter - Sarita Cuenca LPN - 05/29/2024 3:16 PM EDTTelephone Encounter - Sarita Cuenca LPN - 05/29/2024 3:16 PM EDTTelephone Encounter - Silke Moses - 05/27/2024 1:36 PM EDT Note Date & Type Note Facility 05-29-2024 Telephone encounter Note Patient notified of results and provider's instructions. Patient verbalizes understanding. Sarita Cuenca LPN [facility] 05-29-2024 Miscellaneous Notes Patient notified of results and provider's instructions. Patient verbalizes understanding. Sarita Cuenca LPN Please call patient to inform her that fracture shows further healing. Progress as tolerated Silke Moses DPM documented in this encounter [facility] 05-27-2024 Telephone encounter Note Please call patient to inform her that fracture shows further healing. Progress as tolerated Silke Moses DPM [facility] 05-22-2024 History of Presen t illness Narrative Radiology Service Progress Note PATIENT NAME: Dora Guzmán DATE OF SERVICE: May 22, 2024 TIME: 2:21 PM PATIENT IDENTITY VERIFICATION COMPLETED USING TWO (2) IDENTIFIERS: Name and Date of confirmed by patient verbally. FALL SCREENING: Has the patient had 2 falls in the last year or 1 fall with injury or currently using an Ambulatory Assistive Device (Walker, Cane, Wheelchair, Crutches, etc.)? No PATIENT GENDER DATA: Assigned female at . status: : No status: NO. PATIENT RELEVANT IMPLANT DATA REVIEWED: Not Applicable PATIENT PRESENTS WITH AN IMPLANTABLE OR ATTACHED TERRITORY SALES EXECUTIVE: No RADIOLOGY DEPARTMENT: General X-ray: Exam(s) Completed: Lower Extremity X-Ray(s): Toes, Left, GREAT TOE PERIPHERAL IV DATA: Not applicable SIGNED BY: RT Angelica(Terrence) May 22, 2024 2:21 PM documented in this encounter [facility] 05-22-2024 Note HNO ID: [id number] Author: OCTAVIO VELÁZQUEZ RT(Terrence) Service: ? Author Type: Technologist Type: Progress Notes Filed: 05/22/2024 14:24 Note Text: Radiology Service Progress Note PATIENT NAME: Dora Guzmán DATE OF SERVICE: May 22, 2024 TIME: 2:21 PM PATIENT IDENTITY VERIFICATION COMPLETED USING TWO (2) IDENTIFIERS: Name and Date of confirmed by patient verbally. FALL SCREENING: Has the patient had 2 falls in the last year or 1 fall with injury or currently using an Ambulatory Assistive Device (Walker, Cane, Wheelchair, Crutches, etc.)? No PATIENT GENDER DATA: Assigned female at . status: : No status: NO. PATIENT RELEVANT IMPLANT DATA REVIEWED: Not Applicable PATIENT PRESENTS WITH AN IMPLANTABLE OR ATTACHED TERRITORY SALES EXECUTIVE: No RADIOLOGY DEPARTMENT: General X-ray: Exam(s) Completed: Lower Extremity X-Ray(s): Toes, Left, GREAT TOE PERIPHERAL IV DATA: Not applicable SIGNED BY: Octavio Velázquez RT(R) May 22, 2024 2:21 PM [facility] 05-22-2024 Note HNO ID: [id number] Author: SILKE MOSES, ? Service: ? Author Type: Physician Type: Progress Notes Filed: 05/22/2024 08:34 Note Text: FOLLOW UP PODIATRIC OFFICE VISIT Chief Complaint: This 73 year old who presents for follow up:left hallux fracture Patient presents to clinic for follow-up left hallux fracture She injured this toe several months ago. Overall, she is doing well. Does have some swelling and redness. Denies any pain Had nail removed at time of fracture due to lifting of nail plate. This is now healed PAIN EVALUATION No data found in the last 1 encounters. No results found for: HBA1C PCP: No primary care provider on file. PAST MEDICAL HISTORY Diagnosis Date Allergic rhinitis, cause unspecified Allergic rhinitis Diabetes mellitus (HCC) Essential hypertension Glaucoma 1999 Mixed hyperlipidemia Hyperlipidemia Thyrotoxicosis without mention of goiter or other cause, without mention of thyrotoxic crisis or storm Hyperthyroidism Current Outpatient Medications Medication Sig simvastatin (ZOCOR) 20 mg tablet Take 1 tablet by mouth every afternoon. lisinopril (ZESTRIL) 10 mg tablet Take 1 tablet by mouth every afternoon. latanoprost (XALATAN) 0.005 % ophthalmic solution INSTILL 1 DROP INTO EACH EYE NIGHTLY AT BEDTIME timolol maleate (TIMOPTIC) 0.5 % ophthalmic solution Use 1 Drop in both eyes two times a day. SYNTHROID 25 MCG TAB Take one(1) tablet daily. doxycycline hyclate (VIBRAMYCIN) 100 mg capsule Take 1 capsule (100 mg) by mouth two times a day. (Patient not taking: Reported on 05/22/2024) No current facility-administered medications for this visit. ALLERGIES Allergen Reactions Hydrocodone-Acetami* Mental Status Change Penicillins Anaphylaxis PAST SURGICAL HISTORY Procedure Laterality Date BIOPSY BREAST OPEN INCISIONAL stertactic biopsy COLONOSCOPY FLX DX W/COLLJ SPEC WHEN PFRMD Colonoscopy LAPAROSCOPY SURG CHOLECYSTECTOMY Cholecystectomy, lap NEUROPLASTY AND/TRANSPOS MEDIAN NRV CARPAL TUNNE Carpal tunnel decomp TONSILLECTOMY PRIMARY/SECONDARY Tonsillectomy TOTAL ABDOMINAL HYSTERECT W/WO RMVL TUBE OVARY Hysterectomy, MOON Physical Exam: OBJECTIVE: Constitutional: Pt is a well developed 73 year old female who is alert, oriented, cooperative and in no apparent distress. Eyes: Following during examination. No redness or drainage. Respiratory: RR normal and nonlabored. Even breathing. No evidence of distress. Psychology: Patient is engaged during conversation. Normal affect and mood. Does not appear depressed or anxious. NVSI unchanged from previous visit. Dermatological: Nails 1-5 b/l are normal. Webspaces clean and dry 1-4 b/l. Skin appears well hydrated and supple. good color, texture, turgor. No open lesions present. Callus present to b/l hallux Musculoskeletal/Orthopaedic: Patient has no pain to palpation of left hallux ipj Mild swelling is noted to left hallux ipj Xrays from March 16 and April 04 reviewed. Healing fracture is noted ASSESSMENT: (S92.578A) Closed non-physeal fracture of phalanx of left great toe, unspecified phalanx, initial encounter (primary encounter diagnosis) PLAN: Discussed fracture of left hallux. Will repeat xrays today to assure further healing is noted. If further healing noted, can continue with activity as tolerated Nail is starting to return. No signs of infection Callus reduced with dremmel today to b/l hallux. Can continue with pummice stone prn. Will notify patient of xray results Silke Moses DPM [facility] 05-22-2024 History of Presen t illness Narrative FOLLOW UP PODIATRIC OFFICE VISIT Chief Complaint: This 73 year old who presents for follow up:left hallux fracture Patient presents to clinic for follow-up left hallux fracture She injured this toe several months ago. Overall, she is doing well. Does have some swelling and redness. Denies any pain Had nail removed at time of fracture due to lifting of nail plate. This is now healed PAIN EVALUATION No data found in the last 1 encounters. No results found for: HBA1C PCP: No primary care provider on file. PAST MEDICAL HISTORY Diagnosis Date Allergic rhinitis, cause unspecified Allergic rhinitis Diabetes mellitus (HCC) Essential hypertension Glaucoma 1999 Mixed hyperlipidemia Hyperlipidemia Thyrotoxicosis without mention of goiter or other cause, without mention of thyrotoxic crisis or storm Hyperthyroidism Current Outpatient Medications Medication Sig simvastatin (ZOCOR) 20 mg tablet Take 1 tablet by mouth every afternoon. lisinopril (ZESTRIL) 10 mg tablet Take 1 tablet by mouth every afternoon. latanoprost (XALATAN) 0.005 % ophthalmic solution INSTILL 1 DROP INTO EACH EYE NIGHTLY AT BEDTIME timolol maleate (TIMOPTIC) 0.5 % ophthalmic solution Use 1 Drop in both eyes two times a day. SYNTHROID 25 MCG TAB Take one(1) tablet daily. doxycycline hyclate (VIBRAMYCIN) 100 mg capsule Take 1 capsule (100 mg) by mouth two times a day. (Patient not taking: Reported on 05/22/2024) No current facility-administered medications for this visit. ALLERGIES Allergen Reactions Hydrocodone-Acetami* Mental Status Change Penicillins Anaphylaxis PAST SURGICAL HISTORY Procedure Laterality Date BIOPSY BREAST OPEN INCISIONAL stertactic biopsy COLONOSCOPY FLX DX W/COLLJ SPEC WHEN PFRMD Colonoscopy LAPAROSCOPY SURG CHOLECYSTECTOMY Cholecystectomy, lap NEUROPLASTY &/TRANSPOS MEDIAN NRV CARPAL TUNNE Carpal tunnel decomp TONSILLECTOMY PRIMARY/SECONDARY <AGE 12 Tonsillectomy TOTAL ABDOMINAL HYSTERECT W/WO RMVL TUBE OVARY Hysterectomy, MOON Physical Exam: OBJECTIVE: Constitutional: Pt is a well developed 73 year old female who is alert, oriented, cooperative and in no apparent distress. Eyes: Following during examination. No redness or drainage. Respiratory: RR normal and nonlabored. Even breathing. No evidence of distress. Psychology: Patient is engaged during conversation. Normal affect and mood. Does not appear depressed or anxious. NVSI unchanged from previous visit. Dermatological: Nails 1-5 b/l are normal. Webspaces clean and dry 1-4 b/l. Skin appears well hydrated and supple. good color, texture, turgor. No open lesions present. Callus present to b/l hallux Musculoskeletal/Orthopaedic: Patient has no pain to palpation of left hallux ipj Mild swelling is noted to left hallux ipj Xrays from March 16 and April 04 reviewed. Healing fracture is noted ASSESSMENT: (K31.214A) Closed non-physeal fracture of phalanx of left great toe, unspecified phalanx, initial encounter (primary encounter diagnosis) PLAN: Discussed fracture of left hallux. Will repeat xrays today to assure further healing is noted. If further healing noted, can continue with activity as tolerated Nail is starting to return. No signs of infection Callus reduced with dremmel today to b/l hallux. Can continue with pummice stone prn. Will notify patient of xray results Silke Moses DPM Patient presents with: Left Great Toe - Established Patient, Follow Up, Fracture, Ingrown Nail Patient presents for follow up left great toe. Had a total nail avulsion done 03/16/24. Xray from 04/04/24 showed healing fracture of distal phalanx left great toe. Denies any pain to the toe, but wanted it evaluated before resuming her normal amount of walking. BESS 04/04/24 documented in this encounter [facility] 05-22-2024 Note HNO ID: [id number] Author: RUBA GARCIA RN Service: ? Author Type: Registered Nurse Type: Progress Notes Filed: 05/22/2024 08:34 Note Text: Patient presents with: Left Great Toe - Established Patient, Follow Up, Fracture, Ingrown Nail Patient presents for follow up left great toe. Had a total nail avulsion done 03/16/24. Xray from 04/04/24 showed healing fracture of distal phalanx left great toe. Denies any pain to the toe, but wanted it evaluated before resuming her normal amount of walking. BESS 04/04/24 [facility] 04-07-2024 Telephone encounter Note Patient returned phone call. Relayed message as below. Patient reports understanding. Sol Ellington MA [facility] 04-07-2024 Miscellaneous Notes Patient returned phone call. Relayed message as below. Patient reports understanding. Sol Ellington MA Called patient to provided result and recommendation below. No response. Left VM. Sarita Cuenca LPN Please call patient to inform her that fracture shows further healing. Continue with activity as tolerated Silke Moses DPM documented in this encounter [facility] 04-07-2024 Telephone encounter Note Called patient to provided result and recommendation below. No response. Left VM. Sarita Cuenca LPN [facility] 04-06-2024 Telephone encounter Note Please call patient to inform her that fracture shows further healing. Continue with activity as tolerated Silke Moses DPM [facility] 04-04-2024 History of Presen t illness Narrative Radiology Service Progress Note PATIENT NAME: Dora Guzmán DATE OF SERVICE: April 04, 2024 TIME: 3:20 PM PATIENT IDENTITY VERIFICATION COMPLETED USING TWO (2) IDENTIFIERS: Name and Date of confirmed by patient verbally. FALL SCREENING: Has the patient had 2 falls in the last year or 1 fall with injury or currently using an Ambulatory Assistive Device (Walker, Cane, Wheelchair, Crutches, etc.)? Yes, Patient High Risk for Falls What interventions were put in place to prevent falls during this visit? Increased Observations by Caregivers PATIENT GENDER DATA: Assigned female at . status: : No status: NO. PATIENT RELEVANT IMPLANT DATA REVIEWED: Not Applicable PATIENT PRESENTS WITH AN IMPLANTABLE OR ATTACHED TERRITORY SALES EXECUTIVE: No RADIOLOGY DEPARTMENT: General X-ray: Exam(s) Completed: Lower Extremity X-Ray(s): Toes, Left, GREAT TOE PERIPHERAL IV DATA: Not applicable SIGNED BY: RT Angelica(R) April 04, 2024 3:20 PM documented in this encounter [facility] 04-04-2024 Note HNO ID: [id number] Author: OCTAVIO VELÁZQUEZ RT(R) Service: ? Author Type: Technologist Type: Progress Notes Filed: 04/04/2024 15:24 Note Text: Radiology Service Progress Note PATIENT NAME: Dora Guzmán DATE OF SERVICE: April 04, 2024 TIME: 3:20 PM PATIENT IDENTITY VERIFICATION COMPLETED USING TWO (2) IDENTIFIERS: Name and Date of confirmed by patient verbally. FALL SCREENING: Has the patient had 2 falls in the last year or 1 fall with injury or currently using an Ambulatory Assistive Device (Walker, Cane, Wheelchair, Crutches, etc.)? Yes, Patient High Risk for Falls What interventions were put in place to prevent falls during this visit? Increased Observations by Caregivers PATIENT GENDER DATA: Assigned female at . status: : No status: NO. PATIENT RELEVANT IMPLANT DATA REVIEWED: Not Applicable PATIENT PRESENTS WITH AN IMPLANTABLE OR ATTACHED TERRITORY SALES EXECUTIVE: No RADIOLOGY DEPARTMENT: General X-ray: Exam(s) Completed: Lower Extremity X-Ray(s): Toes, Left, GREAT TOE PERIPHERAL IV DATA: Not applicable SIGNED BY: RT Angelica(Terrence) April 04, 2024 3:20 PM [facility] 04-04-2024 Instructions Silke Moses - 04/04/2024 11:45 AM EST Your nail bed is now healed Ok to shower Ok to swim Expect fracture to be nearly healed if not completely healed Ok to continue with activity as tolerated. documented in this encounter [facility] 04-04-2024 Note HNO ID: [id number] Author: SILKE MOSES, ? Service: ? Author Type: Physician Type: Progress Notes Filed: 04/04/2024 15:24 Note Text: FOLLOW UP PODIATRIC OFFICE VISIT Chief Complaint: This 73 year old who presents for follow up:left great toe cellulitis Patient presents to clinic for follow-up cellulitis of left hallux Was treated with total nail avulsion She feels well Patient denies any drainage Has completed antibiotic Does not complain of any pain. Is wearing regular shoe PAIN EVALUATION No data found in the last 1 encounters. No results found for: HBA1C PCP: No primary care provider on file. PAST MEDICAL HISTORY Diagnosis Date Allergic rhinitis, cause unspecified Allergic rhinitis Diabetes mellitus (HCC) Essential hypertension Glaucoma 2000 Mixed hyperlipidemia Hyperlipidemia Thyrotoxicosis without mention of goiter or other cause, without mention of thyrotoxic crisis or storm Hyperthyroidism Current Outpatient Medications Medication Sig simvastatin (ZOCOR) 20 mg tablet Take 1 tablet by mouth every afternoon. lisinopril (ZESTRIL) 10 mg tablet Take 1 tablet by mouth every afternoon. latanoprost (XALATAN) 0.005 % ophthalmic solution INSTILL 1 DROP INTO EACH EYE NIGHTLY AT BEDTIME timolol maleate (TIMOPTIC) 0.5 % ophthalmic solution Use 1 Drop in both eyes two times a day. doxycycline hyclate (VIBRAMYCIN) 100 mg capsule Take 1 capsule (100 mg) by mouth two times a day. SYNTHROID 25 MCG TAB Take one(1) tablet daily. No current facility-administered medications for this visit. ALLERGIES Allergen Reactions Hydrocodone-Acetami* Mental Status Change Penicillins Anaphylaxis PAST SURGICAL HISTORY Procedure Laterality Date BIOPSY BREAST OPEN INCISIONAL stertactic biopsy COLONOSCOPY FLX DX W/COLLJ SPEC WHEN PFRMD Colonoscopy LAPAROSCOPY SURG CHOLECYSTECTOMY Cholecystectomy, lap NEUROPLASTY AND/TRANSPOS MEDIAN NRV CARPAL TUNNE Carpal tunnel decomp TONSILLECTOMY PRIMARY/SECONDARY Tonsillectomy TOTAL ABDOMINAL HYSTERECT W/WO RMVL TUBE OVARY Hysterectomy, MOON Physical Exam: OBJECTIVE: Constitutional: Pt is a well developed 73 year old female who is alert, oriented, cooperative and in no apparent distress. Eyes: Following during examination. No redness or drainage. Respiratory: RR normal and nonlabored. Even breathing. No evidence of distress. Psychology: Patient is engaged during conversation. Normal affect and mood. Does not appear depressed or anxious. NVSI unchanged from previous visit. Dermatological: Left hallux nail bed is now healed and no signs of infection Prior redness has resolved No pain or swelling of left foot Musculoskeletal/Orthopaedic: Patient has no pain to palpation of left hallux ASSESSMENT: (M79.675, M79.89) Pain and swelling of toe of left foot (primary encounter diagnosis) (S91.109A) Open wound of toe, initial encounter Fracture of left hallux PLAN: Patient is s/p total nail avulsion. The nail bed is healed and no signs of infection Reviewed cultures. She has completed appropriate antibiotic There has never been any deep wound so the concern for underlying bone infection is minimal Will repeat xrays to assure no new changes of bone. If any chage is present, suspect further healing of known fracture If no pain, can continue with activity as tolerated Silke Moses DPM [facility] 04-04-2024 History of Presen t illness Narrative FOLLOW UP PODIATRIC OFFICE VISIT Chief Complaint: This 73 year old who presents for follow up:left great toe cellulitis Patient presents to clinic for follow-up cellulitis of left hallux Was treated with total nail avulsion She feels well Patient denies any drainage Has completed antibiotic Does not complain of any pain. Is wearing regular shoe PAIN EVALUATION No data found in the last 1 encounters. No results found for: HBA1C PCP: No primary care provider on file. PAST MEDICAL HISTORY Diagnosis Date Allergic rhinitis, cause unspecified Allergic rhinitis Diabetes mellitus (HCC) Essential hypertension Glaucoma 1999 Mixed hyperlipidemia Hyperlipidemia Thyrotoxicosis without mention of goiter or other cause, without mention of thyrotoxic crisis or storm Hyperthyroidism Current Outpatient Medications Medication Sig simvastatin (ZOCOR) 20 mg tablet Take 1 tablet by mouth every afternoon. lisinopril (ZESTRIL) 10 mg tablet Take 1 tablet by mouth every afternoon. latanoprost (XALATAN) 0.005 % ophthalmic solution INSTILL 1 DROP INTO EACH EYE NIGHTLY AT BEDTIME timolol maleate (TIMOPTIC) 0.5 % ophthalmic solution Use 1 Drop in both eyes two times a day. doxycycline hyclate (VIBRAMYCIN) 100 mg capsule Take 1 capsule (100 mg) by mouth two times a day. SYNTHROID 25 MCG TAB Take one(1) tablet daily. No current facility-administered medications for this visit. ALLERGIES Allergen Reactions Hydrocodone-Acetami* Mental Status Change Penicillins Anaphylaxis PAST SURGICAL HISTORY Procedure Laterality Date BIOPSY BREAST OPEN INCISIONAL stertactic biopsy COLONOSCOPY FLX DX W/COLLJ SPEC WHEN PFRMD Colonoscopy LAPAROSCOPY SURG CHOLECYSTECTOMY Cholecystectomy, lap NEUROPLASTY &/TRANSPOS MEDIAN NRV CARPAL TUNNE Carpal tunnel decomp TONSILLECTOMY PRIMARY/SECONDARY <AGE 12 Tonsillectomy TOTAL ABDOMINAL HYSTERECT W/WO RMVL TUBE OVARY Hysterectomy, MOON Physical Exam: OBJECTIVE: Constitutional: Pt is a well developed 73 year old female who is alert, oriented, cooperative and in no apparent distress. Eyes: Following during examination. No redness or drainage. Respiratory: RR normal and nonlabored. Even breathing. No evidence of distress. Psychology: Patient is engaged during conversation. Normal affect and mood. Does not appear depressed or anxious. NVSI unchanged from previous visit. Dermatological: Left hallux nail bed is now healed and no signs of infection Prior redness has resolved No pain or swelling of left foot Musculoskeletal/Orthopaedic: Patient has no pain to palpation of left hallux ASSESSMENT: (M79.675, M79.89) Pain and swelling of toe of left foot (primary encounter diagnosis) (S91.109A) Open wound of toe, initial encounter Fracture of left hallux PLAN: Patient is s/p total nail avulsion. The nail bed is healed and no signs of infection Reviewed cultures. She has completed appropriate antibiotic There has never been any deep wound so the concern for underlying bone infection is minimal Will repeat xrays to assure no new changes of bone. If any chage is present, suspect further healing of known fracture If no pain, can continue with activity as tolerated Silke Moses DPM Patient presents with: Left Great Toe - Established Patient, Follow Up, Post Op Patient presents for follow up of left great toe total nail avulsion that was performed on 03/16/24. Still some tenderness with pressure. No redness or swelling. documented in this encounter [facility] 04-04-2024 Note HNO ID: [id number] Author: RUBA GARCIA RN Service: ? Author Type: Registered Nurse Type: Progress Notes Filed: 04/04/2024 15:24 Note Text: Patient presents with: Left Great Toe - Established Patient, Follow Up, Post Op Patient presents for follow up of left great toe total nail avulsion that was performed on 03/16/24. Still some tenderness with pressure. No redness or swelling. [facility] 03-20-2024 Telephone encounter Note I called patient to check on her. She states the toe is improving. I instructed her to continue with the doxycycline. Continue with local wound care Silke Moses DPM [facility] 03-20-2024 Miscellaneous Notes I called patient to check on her. She states the toe is improving. I instructed her to continue with the doxycycline. Continue with local wound care Silke Moses DPM documented in this encounter [facility] 03-16-2024 Note HNO ID: [id number] Author: RUBA GARCIA RN Service: ? Author Type: Registered Nurse Type: Progress Notes Filed: 03/16/2024 21:55 Note Text: UNIVERSAL PROTOCOL / SAFETY CHECKLIST Procedure to be Performed: Total nail avulsion, left great toe Sign In: A Moment of CARE was completed. Personnel directly involved with the procedure wore the appropriate PPE (Personal Protective Equipment). Special equipment: nail kit Patient/Surrogate Stated/Verified: PATIENT VERIFIED(optional for EMERGENT procedures): Patient name, Date of , Relevant allergies, and The intended procedure Time Out Communication: Intended patient and procedure match the source documents. Consent documented and matches the intended procedure. No relevant labs, photos, and/or imaging studies were applicable for review. Correct side/site marked and visible. Medications required for procedure verified. No fire risk assessment and interventions applicable. No implant(s) inserted. Sign Out: SIGN OUT (optional for EMERGENT procedures): All specimen containers correctly labeled. All instruments, equipment, possible retained foreign bodies accounted for. Post-procedure follow-up management communicated and Plan of Care Visit completed when applicable. Ruba Garcia RN [facility] 03-16-2024 History of Presen t illness Narrative UNIVERSAL PROTOCOL / SAFETY CHECKLIST Procedure to be Performed: Total nail avulsion, left great toe Sign In: A Moment of CARE was completed. Personnel directly involved with the procedure wore the appropriate PPE (Personal Protective Equipment). Special equipment: nail kit Patient/Surrogate Stated/Verified: PATIENT VERIFIED(optional for EMERGENT procedures): Patient name, Date of , Relevant allergies, and The intended procedure Time Out Communication: Intended patient and procedure match the source documents. Consent documented and matches the intended procedure. No relevant labs, photos, and/or imaging studies were applicable for review. Correct side/site marked and visible. Medications required for procedure verified. No fire risk assessment and interventions applicable. No implant(s) inserted. Sign Out: SIGN OUT (optional for EMERGENT procedures): All specimen containers correctly labeled. All instruments, equipment, possible retained foreign bodies accounted for. Post-procedure follow-up management communicated and Plan of Care Visit completed when applicable. Ruba Garcia RN Initial Podiatric Office Visit: Chief Complaint: This 73 year old female who presents with chief complaint:left great toe swelling HPI Patient presents to clinic for evaluation of left great toe She stubbed her left great toe 2 months ago resulting in her toe bending backward She initially thought it would get better so she did not seek any medical attention About one month later, she presented to her pcp who placed her on an antibiotic. The antibiotic did not help with any redness or swelling The toe still looks the same., that is swelling and redness She denies any drainage She is diabetic diet controlled. PAIN EVALUATION No data found in the last 1 encounters. No results found for: HBA1C PCP: No primary care provider on file. PAST MEDICAL HISTORY Diagnosis Date Allergic rhinitis, cause unspecified Allergic rhinitis Diabetes mellitus (HCC) Essential hypertension Glaucoma 1999 Mixed hyperlipidemia Hyperlipidemia Thyrotoxicosis without mention of goiter or other cause, without mention of thyrotoxic crisis or storm Hyperthyroidism Current Outpatient Medications Medication Sig simvastatin (ZOCOR) 20 mg tablet Take 1 tablet by mouth every afternoon. lisinopril (ZESTRIL) 10 mg tablet Take 1 tablet by mouth every afternoon. latanoprost (XALATAN) 0.005 % ophthalmic solution INSTILL 1 DROP INTO EACH EYE NIGHTLY AT BEDTIME timolol maleate (TIMOPTIC) 0.5 % ophthalmic solution Use 1 Drop in both eyes two times a day. SYNTHROID 25 MCG TAB Take one(1) tablet daily. No current facility-administered medications for this visit. ALLERGIES Allergen Reactions Hydrocodone-Acetami* Mental Status Change Penicillins Anaphylaxis PAST SURGICAL HISTORY Procedure Laterality Date BIOPSY BREAST OPEN INCISIONAL stertactic biopsy COLONOSCOPY FLX DX W/COLLJ SPEC WHEN PFRMD Colonoscopy LAPAROSCOPY SURG CHOLECYSTECTOMY Cholecystectomy, lap NEUROPLASTY &/TRANSPOS MEDIAN NRV CARPAL TUNNE Carpal tunnel decomp TONSILLECTOMY PRIMARY/SECONDARY <AGE 12 Tonsillectomy TOTAL ABDOMINAL HYSTERECT W/WO RMVL TUBE OVARY Hysterectomy, MOON FAMILY HISTORY Problem Relation Age of Onset Glaucoma Mother Hypertension Mother Hyperlipidemia Mother Alzheimer's Disease Mother other (other) Father part of lung missing for GSW and black lung Schizophrenia Sister No Known Problems Sister car accident 35 year old Alzheimer's Disease Brother Neuropathy Brother Vertigo Brother Alzheimer's Disease Maternal Grandmother Heart Attack Maternal Grandfather Blindness Paternal Grandmother at 106 year old Heart Attack Paternal Grandfather Social History Tobacco Use Smoking status: Never Smokeless tobacco: Never Substance Use Topics Alcohol use: No Drug use: No REVIEW OF SYSTEMS GENERAL: Negative for Malaise, significant weight loss, fever RESPIRATORY: Negative for cough, wheezing and shortness of breath CARDIOVASCULAR: Negative for chest pain, leg swelling and palpitations GI: Negative for abdominal discomfort, blood in stools or black stools and change in bowel habits : Negative for dysuria, frequency and incontinence MUSCULOSKELETAL: Negative for joint pain or swelling, back pain, and muscle pain. SKIN: Negative for lesions, rash, and itching. HEMATOLOGY/LYMPHOLOGY Negative for prolonged bleeding, bruising easily, and swollen nodes. ENDOCRINE: Negative for cold or heat intolerance, polyuria, polydipsia and goiter. NEURO: negative Physical Exam: Constitutional: Pt is a well developed 73 year old female who is alert, oriented and cooperative Eyes: Following during examination. No redness or drainage. Respiratory: RR normal and nonlabored. Even breathing. No evidence of distress or shortness of breath. Psychology: Patient is engaged during conversation. Normal affect and mood. Does not appear depressed or anxious during encounter. Vascular: Dorsalis pedis and posterior tibial pulses palpable as b/l Capillary Fill time < 5 seconds to digits 1-5 b/l Skin temperature warm to warm proximal to distal b/l Hair growth present to digits Neurological: intact light touch/epicritic sensation Vibratory sensation intact to hallux b/l intact protective sensation no significant neurological deficits Dermatological: Left hallux proximal nail fold is swollen, red, slight drainage. Webspaces clean and dry 1-4 b/l. Skin appears well hydrated and supple. good color, texture, turgor. No open lesions present. No callosities present. Musculoskeletal/Orthopaedic: Patient has pain to palpation of left hallux ipj + swelling of left hallux ipj Foot type is neutral structurally AJ ROM is full with knee extended and flexed 1st MPJ is full when loaded and no pain or crepitus are noted with ROM. MTJ, STJ are full and free of pain and crepitus. +5/5 muscle strength dorsiflexion, plantarflexion, inversion, eversion b/l Radiographs: 3 views left foot ordered March 16, 2024: I have personally reviewed and interpreted these XR myself: nondisplaced subacute fracture of left hallux distal phalanx ASSESSMENT: (M79.675, M79.89) Pain and swelling of toe of left foot (primary encounter diagnosis) (L03.032, L02.612) Cellulitis and abscess of toe of PLAN: 1. History and physical examination performed. 2. Discussed pain and swelling of left hallux. She has history of trauma 2 months ago and the toe has been swollen and painful since. I ordered a stat xray and there is nondisplaced subacute fracture of left halux with callus formation consistent with healing. I will have her continue with firm sole shoe. Offered surgical shoe but she has fears of falling. 3. On exam, there is redness and swelling of left hallux. This certainly can occur with known fracture. However, there is drainage of proximal nail fold. I do feel there is secondary infection of left hallux proximal nail fold due to swelling of distal hallux likely leading to skin surface bacterial colonizing along proximal nail fold. I discussed options not limited to monitoring, placing her on antibiotic which she has already tried vs doing avulsion of the nail plate combined with antibiotic. This patient elected for total nail avulsion of left hallux combined with antibiotic. Discussed recurrent spicule of left hallux. Discussed options not limited to monitoring vs debridement vs revised matrixectomy. Options for revised matrixectomy include partial vs total. This patient has elected for revised partial nail matrixectomy of left hallux lateral nail border Discussed risks of the procedure not limited to infection, pain, swelling, bleeding, slow wound healing, recurrent ingrown, loss of toe, need for total nail matrixectomy. This patient consents to proceed with partial nail chemical matrixectomy of left hallux lateral nail border Discussed risks of toenail procedure not limited to infection, pain, swelling, bleeding, painful scarring, recurrence, need for revised procedure. Patient consented to proceed. Patient was properly identified by name and procedure. The left hallux was then injected with 3 cc of 1% lidocaine plain. The toe was then prepped and draped in the usual aseptic technique. A digital tournicot was applied to the toe. The entire nail was then freed and removed. Careful inspection was performed to assure no remaining spicule present. Avulsion was performed. Wound culture was performed. Nail bed appears intact without open wounds. Sterile dressing was then applied consisting of amerigel, guaze, iman and coban. Tournicot was removed and hyperemic response was noted. Patient tolerated well. Patient will f/u in 2 weeks. Silke Moses DPM Podiatry [address] [facility] [address] Dept: [phone] Dept AMB ROOMING INTAKE FLOWSHEET DATA Risk Screening Do you have concerns about personal safety or safety in the home?: No Patient presents with: Left Great Toe - New, Pain, Ingrown Toenail Injury to nail 6-8 weeks ago. Sarita Cuenca LPN documented in this encounter [facility] 03-16-2024 Instructions Ruba Garcia RN - 03/16/2024 4:41 PM EST Post-Op Nail Instructions Minimize activity until the anesthesia wears off (about 2-8 hours). Increase activity to tolerance Remove bandage tomorrow Soak affected toe/foot in epsom salts for 15-20 minutes twice daily After soaking, apply antibiotic ointment (OTC Neosporin) to affected toe and re bandage OTC Ibuprofen if having pain, provided you have no allergies or intolerance to NSAIDS Mild drainage, redness, and blood is expected, but if you expeirence severe pain, increase in drainage, swelling, or red streaking please contact our office immediately Feel free to contact office as well if you have any questions/concerns [phone], ask for Podiatry Nurse documented in this encounter [facility] 03-16-2024 Note HNO ID: [id number] Author: SILKE MOSES, ? Service: ? Author Type: Physician Type: Progress Notes Filed: 03/16/2024 21:55 Note Text: Initial Podiatric Office Visit: Chief Complaint: This 73 year old female who presents with chief complaint:left great toe swelling HPI Patient presents to clinic for evaluation of left great toe She stubbed her left great toe 2 months ago resulting in her toe bending backward She initially thought it would get better so she did not seek any medical attention About one month later, she presented to her pcp who placed her on an antibiotic. The antibiotic did not help with any redness or swelling The toe still looks the same., that is swelling and redness She denies any drainage She is diabetic diet controlled. PAIN EVALUATION No data found in the last 1 encounters. No results found for: HBA1C PCP: No primary care provider on file. PAST MEDICAL HISTORY Diagnosis Date Allergic rhinitis, cause unspecified Allergic rhinitis Diabetes mellitus (HCC) Essential hypertension Glaucoma 1999 Mixed hyperlipidemia Hyperlipidemia Thyrotoxicosis without mention of goiter or other cause, without mention of thyrotoxic crisis or storm Hyperthyroidism Current Outpatient Medications Medication Sig simvastatin (ZOCOR) 20 mg tablet Take 1 tablet by mouth every afternoon. lisinopril (ZESTRIL) 10 mg tablet Take 1 tablet by mouth every afternoon. latanoprost (XALATAN) 0.005 % ophthalmic solution INSTILL 1 DROP INTO EACH EYE NIGHTLY AT BEDTIME timolol maleate (TIMOPTIC) 0.5 % ophthalmic solution Use 1 Drop in both eyes two times a day. SYNTHROID 25 MCG TAB Take one(1) tablet daily. No current facility-administered medications for this visit. ALLERGIES Allergen Reactions Hydrocodone-Acetami* Mental Status Change Penicillins Anaphylaxis PAST SURGICAL HISTORY Procedure Laterality Date BIOPSY BREAST OPEN INCISIONAL stertactic biopsy COLONOSCOPY FLX DX W/COLLJ SPEC WHEN PFRMD Colonoscopy LAPAROSCOPY SURG CHOLECYSTECTOMY Cholecystectomy, lap NEUROPLASTY AND/TRANSPOS MEDIAN NRV CARPAL TUNNE Carpal tunnel decomp TONSILLECTOMY PRIMARY/SECONDARY Tonsillectomy TOTAL ABDOMINAL HYSTERECT W/WO RMVL TUBE OVARY Hysterectomy, MOON FAMILY HISTORY Problem Relation Age of Onset Glaucoma Mother Hypertension Mother Hyperlipidemia Mother Alzheimer's Disease Mother other (other) Father part of lung missing for GSW and black lung Schizophrenia Sister No Known Problems Sister car accident 35 year old Alzheimer's Disease Brother Neuropathy Brother Vertigo Brother Alzheimer's Disease Maternal Grandmother Heart Attack Maternal Grandfather Blindness Paternal Grandmother at 106 year old Heart Attack Paternal Grandfather Social History Tobacco Use Smoking status: Never Smokeless tobacco: Never Substance Use Topics Alcohol use: No Drug use: No REVIEW OF SYSTEMS GENERAL: Negative for Malaise, significant weight loss, fever RESPIRATORY: Negative for cough, wheezing and shortness of breath CARDIOVASCULAR: Negative for chest pain, leg swelling and palpitations GI: Negative for abdominal discomfort, blood in stools or black stools and change in bowel habits : Negative for dysuria, frequency and incontinence MUSCULOSKELETAL: Negative for joint pain or swelling, back pain, and muscle pain. SKIN: Negative for lesions, rash, and itching. HEMATOLOGY/LYMPHOLOGY Negative for prolonged bleeding, bruising easily, and swollen nodes. ENDOCRINE: Negative for cold or heat intolerance, polyuria, polydipsia and goiter. NEURO: negative Physical Exam: Constitutional: Pt is a well developed 73 year old female who is alert, oriented and cooperative Eyes: Following during examination. No redness or drainage. Respiratory: RR normal and nonlabored. Even breathing. No evidence of distress or shortness of breath. Psychology: Patient is engaged during conversation. Normal affect and mood. Does not appear depressed or anxious during encounter. Vascular: Dorsalis pedis and posterior tibial pulses palpable as b/l Capillary Fill time < 5 seconds to digits 1-5 b/l Skin temperature warm to warm proximal to distal b/l Hair growth present to digits Neurological: intact light touch/epicritic sensation Vibratory sensation intact to hallux b/l intact protective sensation no significant neurological deficits Dermatological: Left hallux proximal nail fold is swollen, red, slight drainage. Webspaces clean and dry 1-4 b/l. Skin appears well hydrated and supple. good color, texture, turgor. No open lesions present. No callosities present. Musculoskeletal/Orthopaedic: Patient has pain to palpation of left hallux ipj + swelling of left hallux ipj Foot type is neutral structurally AJ ROM is full with knee extended and flexed 1st MPJ is full when loaded and no pain or crepitus are noted with ROM. MTJ, STJ are (more content not included)... [facility] 03-16-2024 Note HNO ID: [id number] Author: SARITA CUENCA LPN Service: ? Author Type: LICENSED NURSE Type: Progress Notes Filed: 03/16/2024 21:55 Note Text: AMB ROOMING INTAKE FLOWSHEET DATA Risk Screening Do you have concerns about personal safety or safety in the home?: No Patient presents with: Left Great Toe - New, Pain, Ingrown Toenail Injury to nail 6-8 weeks ago. Sarita Cuenca LPN [facility] Evaluation note No assessment inform ation available [facility] Work Phone: Evaluation note Diagnosis Pain and swelling of toe of left foot- Primary Cellulitis and abscess of toe of left foot Pain and swelling of toe of left foot [facility] Diagnosis Pain and swelling of toe of left foot documented in this encounter [facility] note* Diagnosis Pain and swelling of toe of left foot- Primary Open wound of toe, initial encounter [facility] Diagnosis Open wound of toe, initial encounter documented in this encounter [facility] note* Diagnosis Closed non-physeal fracture of phalanx of left great toe, unspecified phalanx, initial encounter- Primary [facility] Diagnosis Closed non-physeal fracture of phalanx of left great toe, unspecified phalanx, initial encounter documented in this encounter [facility] for referral (narrative)* Diagnostic Procedure Only (Urgent) - Closed Specialty Diagnoses / Procedures Referred By Jey t Referred To Contact XR IMAGING Diagnoses Pain and swelling of toe of left foot Procedures XR FOOT GENERAL 3V AP/LAT/OBL LEFT RADEX FOOT COMPLETE MINIMUM 3 VIEWS Silke Moses [address] [facility] [address] [address] [place] [address] Referral ID Status Reason Start Date Expiration Date V isits Requested Visits Authorized [id number] Closed Auto-Generate d Referral 03/16/2024 04/15/2025 1 1 [facility] for referral (narrative)* Diagnostic Procedure Only (Urgent) - Closed Specialty Diagnoses / Procedures Referred By Contac t Referred To Contact XR IMAGING Diagnoses Pain and swelling of toe of left foot Procedures XR FOOT GENERAL 3V AP/LAT/OBL LEFT RADEX FOOT COMPLETE MINIMUM 3 VIEWS Silke Moses [address] [address] [place] [address] Referral ID Status Reason Start Date Expiration Date V isits Requested Visits Authorized [id number] Closed Auto-Generate d Referral 03/16/2024 04/15/2025 1 1 [facility] for visit Narrative* Diagnostic Procedure Only (Urgent) - Closed Specialty Diagnoses / Procedures Referred By Contac t Referred To Contact XR IMAGING Diagnoses Pain and swelling of toe of left foot Procedures XR FOOT GENERAL 3V AP/LAT/OBL LEFT RADEX FOOT COMPLETE MINIMUM 3 VIEWS Silke Moses [address] [address] [place] [address] Referral ID Status Reason Start Date Expiration Date V isits Requested Visits Authorized [id number] Closed Auto-Generate d Referral 03/16/2024 04/15/2025 1 1 [facility] for visit Narrative* Diagnostic Procedure Only (Routine) - Closed Specialty Diagnoses / Procedures Referred By Contac t Referred To Contact XR IMAGING Diagnoses Open wound of toe, initial encounter Procedures XR TOE AP/LAT/OBL LEFT RADEX TOE MINIMUM 2 VIEWS Silke Moses [address] [address] Phone: tel: fax: [place] [address] Referral ID Status Reason Start Date Expiration Date V isits Requested Visits Authorized [id number] Closed Auto-Generate d Referral 04/04/2024 05/04/2025 [address] [facility]* Diagnostic Procedure Only (Routine) - Closed Specialty Diagnoses / Procedures Referred By Contac t Referred To Contact XR IMAGING Diagnoses Closed non-physeal fracture of phalanx of left great toe, unspecified phalanx, initial encounter Procedures XR TOE AP/LAT/OBL LEFT RADEX TOE MINIMUM 2 VIEWS Silke Moses[address] [place] [address] Phone: tel: fax: [place] [address] Referral ID Status Reason Start Date Expiration Date V isits Requested Visits Authorized [id number] Closed Auto-Generate d Referral 05/22/2024 06/21/2025 [address] [facility] Chief Complaint and Reason for Visit Chief Complaint SCREENING Chief Complaint SCREENING Family History Relationship Condition Age at Onset Recorded Date/T marta mother Alzheimer's disease Unknown Cerebrovascular accident (CVA) Unknown Advance Directives Advance Directive Response Recorded Date/ Time Living Will Yes August 24, 2018 9 :25am Power of Temporary Office Assistant No August 24, 2018 9:25am Summary Purpose Additional Source Comments Goals (unrecognized section and content) Goals may be documented in a n alternate sectionGoals may be documented in an alternate sectionGoals may be documented in an alternate section Care Teams (unrecognized sec tion and content) Team Status: Active Member Role Status Dates Dr. Vanessa Craig DO Family Provider Active Dr. Vanessa Craig DO Primary Care Provider Active Team Status: Inactive Member Role Status Dates Dr. Vanessa Craig DO Primary Care Provide r, Attending Provider, Referring Provider Active Team Status: Inactive Member Role Status Dates Dr. Vanessa Craig DO Primary Care Provider, Attending Juana hahn Active INFORMATION SOURCE (unrecogn ized section and content) DATE CREATED AUTHOR 03/17/2024 [facility] DATE CREATED AUTHOR 'S ORGANIZ ATION 05/30/2024 [facility] Source Comments (unrecognize d section and content) In the event this informatio n is protected by the Federal Confidentiality of Alcohol and Drug Abuse Patient Records regulations: The Federal rules restrict any use of the information to criminally investigate or prosecute any alcohol or drug abuse patient.[facility] the event this information is protected by the Federal Confidentiality of Alcohol and Drug Abuse Patient Records regulations: The Federal rules restrict any use of the information to criminally investigate or prosecute any alcohol or drug abuse patient.[facility] the event this information is protected by the Federal Confidentiality of Alcohol and Drug Abuse Patient Records regulations: The Federal rules restrict any use of the information to criminally investigate or prosecute any alcohol or drug abuse patient.[facility] the event this information is protected by the Federal Confidentiality of Alcohol and Drug Abuse Patient Records regulations: The Federal rules restrict any use of the information to criminally investigate or prosecute any alcohol or drug abuse patient.[facility] HospitalIn the event this information is protected by the Federal Confidentiality of Alcohol and Drug Abuse Patient Records regulations: The Federal rules restrict any use of the information to criminally investigate or prosecute any alcohol or drug abuse patient.[facility] HospitalIn the event this information is protected by the Federal Confidentiality of Alcohol and Drug Abuse Patient Records regulations: The Federal rules restrict any use of the information to criminally investigate or prosecute any alcohol or drug abuse patient.[facility] HospitalIn the event this information is protected by the Federal Confidentiality of Alcohol and Drug Abuse Patient Records regulations: The Federal rules restrict any use of the information to criminally investigate or prosecute any alcohol or drug abuse patient.[facility] HospitalIn the event this information is protected by the Federal Confidentiality of Alcohol and Drug Abuse Patient Records regulations: The Federal rules restrict any use of the information to criminally investigate or prosecute any alcohol or drug abuse patient.[facility] HospitalIn the event this information is protected by the Federal Confidentiality of Alcohol and Drug Abuse Patient Records regulations: The Federal rules restrict any use of the information to criminally investigate or prosecute any alcohol or drug abuse patient.[facility] HospitalIn the event this information is protected by the Federal Confidentiality of Alcohol and Drug Abuse Patient Records regulations: The Federal rules restrict any use of the information to criminally investigate or prosecute any alcohol or drug abuse patient.[facility] HospitalIn the event this information is protected by the Federal Confidentiality of Alcohol and Drug Abuse Patient Records regulations: The Federal rules restrict any use of the information to criminally investigate or prosecute any alcohol or drug abuse patient.[facility] Reason for Visit (unrecogniz ed section and content) Reason Comments New Pain Ingrown Toenail Reason Comments Results Reason Comments Established Patient Follow Up Post Op Reason Comments Established Patient Follow Up Fracture Ingrown Nail Reason Comments Patient Update FOR RECORDS PERTAINING TO PATIENTS WHO ARE OR HAVE BEEN ENROLLED IN A CHEMICAL DEPENDENCY/SUBSTANCEABUSE PROGRAM, SOME INFORMATION MAY BE OMITTED. This clinical summary was aggregated from multiple sources. Caution should be exercised in using it in the provision of clinical care. This summary normalizes information from multiple sources, and as a consequence, information in this document may materially change the coding, format and clinical context of patient data. In addition, data may be omitted in some cases. CLINICAL DECISIONS SHOULD BE BASED ON THE PRIMARY CLINICAL RECORDS. [email or web address] [facility]. provides no warranty or guarantee of the accuracy or completeness of information in this document.
== END | disposition home or self-care (01) ==
LOC: OPBI 12:07
PROVIDERS: PCP Family Medicine; Referring Provider Family Medicine; Visit Provider Family Medicine
DX: Z12.31 Encounter for screening mammogram for malignant neoplasm of breast (principal)
CPT/HCPCS: 77063; 77067